=== PATIENT | female | born 1950 | race Caucasian/White ===

== ENCOUNTER 2021-05-05 06:56 | Observation (INO) ==
--- NOTE | 2021-04-09 09:43 | PAT Medication Instructions ---
Medication Instructions Date of Service April 09, 2021 Home Medications B comp [id number]-[id number] [Ivites Rx] 1 tab PO QAM Go Lo 1 tab PO AC Natural Cholesterol 1 tab PO TID albuterol 90 mcg INHALATION QID PRN amlodipine-benazepril 1 cap PO HS ascorbic acid (vitamin C) [Vitamin C] 1 g PO QAM calcium carbonate-vitamin D3 [Caltrate 600 plus D] 1 tab PO QAM cholecalciferol (vitamin D3) [Vitamin D3] 75 mcg PO QAM cinnamon bark [Cinnamon] 1,000 mg PO TID coenzyme Q10 [Co Q-10] 10 mg PO QAM cyanocobalamin (vitamin B-12) [Vitamin B-12] 1,000 mcg PO QAM ezetimibe 10 mg PO QAM glucosamine sulfate 500 mg PO QAM lactase 3,000 unit PO AC magnesium 250 mg PO BID metoprolol succinate 25 mg PO BID omega-3 acid ethyl esters 1 cap PO BID phenazopyridine [Azo] 95 mg PO QAM turmeric 1,000 mg PO BID vitamin B complex 1 cap PO QAM vitamin E 90 mg PO QAM warfarin 5 mg PO UD ASK your prescriber and surgeon warfarin 5 mg PO UD STOP taking 2 weeks before surgery (or as soon as possible if surgery is within 2 weeks) B comp [id number]-biotin-zinc [Ivites Rx] 1 tab PO QAM Go Lo 1 tab PO AC Natural Cholesterol 1 tab PO TID cinnamon bark [Cinnamon] 1,000 mg PO TID coenzyme Q10 [Co Q-10] 10 mg PO QAM glucosamine sulfate 500 mg PO QAM omega-3 acid ethyl esters 1 cap PO BID turmeric 1,000 mg PO BID vitamin E 90 mg PO QAM DO NOT take the morning of surgery ascorbic acid (vitamin C) [Vitamin C] 1 g PO QAM calcium carbonate-vitamin D3 [Caltrate 600 plus D] 1 tab PO QAM cholecalciferol (vitamin D3) [Vitamin D3] 75 mcg PO QAM cyanocobalamin (vitamin B-12) [Vitamin B-12] 1,000 mcg PO QAM lactase 3,000 unit PO AC magnesium 250 mg PO BID phenazopyridine [Azo] 95 mg PO QAM vitamin B complex 1 cap PO QAM Take morning of surgery With a small sip of water, OTHERWISE NOTHING TO EAT OR DRINK AFTER MIDNIGHT: albuterol 90 mcg INHALATION QID PRN (use if needed; please bring rescue inhaler with you to hospital day of surgery if possible) ezetimibe 10 mg PO QAM metoprolol succinate 25 mg PO BID Take evening before surgery albuterol 90 mcg INHALATION QID PRN (if needed) amlodipine-benazepril 1 cap PO HS lactase 3,000 unit PO AC magnesium 250 mg PO BID metoprolol succinate 25 mg PO BID Other Notes If you have any questions please call us at [phone] or [phone] or [phone] or [phone]
--- NOTE | 2021-04-09 12:09 | Anesthesiology Consultation ---
Date of Service April 09, 2021 Assessment & Plan (1) Encounter for pre-operative examination: - COVID screening: Per assessment on 04/09: Travel screen negative, no known COVID-19 positive contacts or current COVID-19 related symptoms. Surgeon arranging preop COVID testing. Awaiting results. - Check BSG, coags AM DOS (warfarin instructions per surgeon/prescriber) - Anesthesia concerns: Patient states she does not was spinal anesthesia stating she "just doesn't trust it." GA vs. SAB discussed with patient. Advised that this can be discussed further AM DOS before ultimate decision. Chart Review Chart Review: Acceptable Risk for Surgery (pending surgeon-ordered cardiology and PCP clearances) and Patient seen in Pre Admission Testing Teaching & Discussion Pre-Anesthesia Teaching/Discussion Notes: Instructed NPO after midnight before surgery,except medications with 15 cc of water. Medication instructions provided according to the PAT guidelines. History Surgery Operation Date: 05/05/21 09:10 Proposed Procedures p Left Ankle Postier Tibial Tendon Reconstruction with Flexor Digitorum Longus Tendon Transfer - Kirt Orellana DO s Left Foot Medializing Calcaneal Osteotomy - Kirt Orellana DO s Lateral Column Lengthening with Autograft, Percytaneous Tendo-achilles Lengthening - Kirt Orellana DO s Left Iliac Crest Autograft [place] - Kirt Orellana DO Height/Weight Height: 5 ft 3.5 in Weight: 99.2 kg Allergies Allergy/AdvReac Type Severity Reaction Status Date / Time rosuvastatin [From Crestor] Allergy Unknown Per Verified 04/09/21 13:10 [facility] records- unknown reaction atorvastatin AdvReac Mild Myalgias Unverified 04/09/21 11:43 Medications Home Medications Medication Instructions Recorded Confirmed Last Taken B comp [id number]-biotin-zinc 1 tab PO QAM 04/09/21 04/09/21 Unknown [Ivites Rx] Go Lo 1 tab PO AC 04/09/21 04/09/21 Unknown Natural Cholesterol 1 tab PO TID 04/09/21 04/09/21 Unknown albuterol 90 mcg INHALATION QID PRN 04/09/21 04/09/21 Unknown amlodipine-benazepril 1 cap PO HS 04/09/21 04/09/21 Unknown ascorbic acid (vitamin C) [Vitamin 1 g PO QAM 04/09/21 04/09/21 Unknown C] calcium carbonate-vitamin D3 1 tab PO QAM 04/09/21 04/09/21 Unknown [Caltrate 600 plus D] cholecalciferol (vitamin D3) 75 mcg PO QAM 04/09/21 04/09/21 Unknown [Vitamin D3] cinnamon bark [Cinnamon] 1,000 mg PO TID 04/09/21 04/09/21 Unknown coenzyme Q10 [Co Q-10] 10 mg PO QAM 04/09/21 04/09/21 Unknown cyanocobalamin (vitamin B-12) 1,000 mcg PO QAM 04/09/21 04/09/21 Unknown [Vitamin B-12] ezetimibe 10 mg PO QAM 04/09/21 04/09/21 Unknown glucosamine sulfate 500 mg PO QAM 04/09/21 04/09/21 Unknown lactase 3,000 unit PO AC 04/09/21 04/09/21 Unknown magnesium 250 mg PO BID 04/09/21 04/09/21 Unknown metoprolol succinate 25 mg PO BID 04/09/21 04/09/21 Unknown omega-3 acid ethyl esters 1 cap PO BID 04/09/21 04/09/21 Unknown phenazopyridine [Azo] 95 mg PO QAM 04/09/21 04/09/21 Unknown turmeric 1,000 mg PO BID 04/09/21 04/09/21 Unknown vitamin B complex 1 cap PO QAM 04/09/21 04/09/21 Unknown vitamin E 90 mg PO QAM 04/09/21 04/09/21 Unknown warfarin 5 mg PO UD 04/09/21 04/09/21 Unknown Past Medical History Medical History Asthma Atrial fibrillation Follows with Dr. Franco Diabetes mellitus, type 2 diet controlled Heart burn occasional OTC tums Hyperlipidemia Hypertension Obesity Exercise / Class Metabolic Activity II 4-5 Yardwork/Stairs/Walk up hill (one FS (no chest pain, very rare SOB)) Past Surgical History Surgical History History of carpal tunnel surgery of right wrist History of left knee replacement History of total replacement of right ankle Hx laparoscopic cholecystectomy Hx of colonoscopy Hx of tonsillectomy Past Anesthesia History No Hx of Anesthesia Complications (except PONV x1 episode) and No Family Hx of Anesthesia Complications History of PONV History of PONV Social History Smoking Status: Never smoker Do You Dip or Chew Tobacco: No Hx Alcohol Use: No Hx Substance Use: No substance use type: does not use Review of Systems Occasional palpitations. Patient denies chest pain, shortness of breath, dyspnea on exertion, fever, chills, cough, wheezing. Physical Exam Vital Signs VITALS BP 101/65 P 53 TEMP 98.2 SP02 98%RA RESP 18 PHYSICAL Full cervical extension range of motion. Full TMJ range of motion. TMD 4 finger breaths Mallampati Score 3 Dentition: upper full denture, approximately 9 remaining on lower Lungs: clear throughout to auscultation Cardiac: regular rate and rhythm, no murmurs noted Spine: normal Carotid arteries: negative bruit Extremities: no edema Lab Results Anesthesia Preop Results Results Anesthesia Widget: WBC 5.25 K/uL (4.8-10.8) 04/09/21 Hgb 14.9 g/dL (12.0-16.0) 04/09/21 Hct 44.2 % (37-47) 04/09/21 Plt 170 K/uL (130-400) 04/09/21 Na 137 mmol/L (136-145) 04/09/21 K 4.6 mmol/L (3.5-5.1) 04/09/21 Cl 107 mmol/L (98-107) 04/09/21 CO2 27 mmol/L (21-32) 04/09/21 BUN 22 mg/dl (7-18) H 04/09/21 Creat 0.84 mg/dl (0.6-1.2) 04/09/21 Glucose Level 100 mg/dl (70-99) H 04/09/21 PT 26.4 Seconds (9.0-12.0) H 04/09/21 PTT 40.9 Seconds (21.0-31.0) H 04/09/21 INR 2.8 (0.9-1.1) H 04/09/21 HA1c 6.8 % (4.5-5.6) H 04/09/21 Testing Electrocardiogram Date: 05/12/20 A. fib at 98bpm. Chest X-Ray Date: 04/09/21 No large infiltrates or consolidative lesions. Minimal prominence of pulmonary interstitium and bilateral lower lungs. Echocardiogram Date: 05/21/20 LVEF 59%. No regional motion abnormality. Grade 2 diastolic dysfunction. PASP 37 mmHg. Mild MR. Stress Test Date: 05/21/20 Type: nuclear Cardial perfusion imaging is normal. LVEF 71%. 75% MPHR. Other Testing Holter monitor (01/28/21): Predominant underlying rhythm was sinus rhythm. 9 SVT runs occurred. Atrial fibrillation occurred (20% burden), ranging from 51-191 bpm (average of 105 bpm). Atrial fibrillation was present on activation of device. Isolated SVE's were rare, SVE couplets were rare, SVE triplets were rare. Isolated VE's were rare no VE couplets or VE triplets were present. Cardiology had since increased metoprolol dosing d/t holter monitor findings.
--- NOTE | 2021-05-04 15:30 | History & Physical Report ---
Date of Service May 04, 2021 Assessment & Plan (1) Posterior tibial tendon dysfunction, left: Plan: Schedule a Left Posterior tibial tendon reconstruction w/ FDL tendon transfer, Medializing calcaneal osteotomy, Lateral column lengthening w/ autograft, percutaneous tendo-achilles lengthening, Left iliac crest autograft harvest for 05.05.21. All potential risks, benefits, complications, alternatives, and rehab have been discussed with the patient and she wishes to proceed. Restart Coumadin post op for DVT prophylaxis. (2) Contracture of left Achilles tendon: (3) Tibialis posterior tendon rupture: (4) Pes planus of left foot: History of Present Illness Chief Complaint: left ankle pain and deformity Primary Care Provider: Reynold Stringer MD This is a patient with a hx of flat foot and hindfoot pain. She was treated conservatively but has failed all conservative management. She is now being set up for surgical management. Allergies Allergy/AdvReac Type Severity Reaction Status Date / Time rosuvastatin [From Crestor] Allergy Unknown Per Verified 04/09/21 13:10 [facility]- unknown reaction atorvastatin AdvReac Mild Myalgias Unverified 04/09/21 11:43 Home Medications Medication Instructions Recorded Confirmed Type B comp 3-folic acid 1 mg-C 60 1 tab PO QAM 04/09/21 04/09/21 History mg-biotin 300 mcg-zinc ox 12.5 mg tablet Go Lo 1 tab PO AC 04/09/21 04/09/21 History Natural Cholesterol 1 tab PO TID 04/09/21 04/09/21 History albuterol 90 mcg/actuation aerosol 90 mcg INHALATION QID PRN 04/09/21 04/09/21 History inhaler amlodipine 5 mg-benazepril 20 mg 1 cap PO HS 04/09/21 04/09/21 History capsule ascorbic acid (vitamin C) 1,000 mg 1 g PO QAM 04/09/21 04/09/21 History tablet (Vitamin C) calcium carbonate 600 mg(1,500 1 tab PO QAM 04/09/21 04/09/21 History mg)-vitamin D3 800 unit chewable tablet (Caltrate 600 plus D) cholecalciferol (vitamin D3) 25 75 mcg PO QAM 04/09/21 04/09/21 History mcg (1,000 unit) capsule (Vitamin D3) cinnamon bark 500 mg capsule 1,000 mg PO TID 04/09/21 04/09/21 History (Cinnamon) coenzyme Q10 10 mg capsule (Co 10 mg PO QAM 04/09/21 04/09/21 History Q-10) cyanocobalamin (vitamin B-12) 1,000 mcg PO QAM 04/09/21 04/09/21 History 1,000 mcg tablet (Vitamin B-12) ezetimibe 10 mg tablet 10 mg PO QAM 04/09/21 04/09/21 History glucosamine sulfate 500 mg capsule 500 mg PO QAM 04/09/21 04/09/21 History lactase 3,000 unit tablet 3,000 unit PO AC 04/09/21 04/09/21 History magnesium 250 mg tablet 250 mg PO BID 04/09/21 04/09/21 History metoprolol succinate 25 mg 25 mg PO BID 04/09/21 04/09/21 History tablet,extended release 24 hr omega-3 acid ethyl esters 1 gram 1 cap PO BID 04/09/21 04/09/21 History capsule phenazopyridine 95 mg tablet 95 mg PO QAM 04/09/21 04/09/21 History turmeric 400 mg capsule 1,000 mg PO BID 04/09/21 04/09/21 History vitamin B complex 1 cap PO QAM 04/09/21 04/09/21 History vitamin E 400 unit tablet 90 mg PO QAM 04/09/21 04/09/21 History warfarin 5 mg tablet 5 mg PO UD 04/09/21 04/09/21 History Past Med/Surg History Medical History Asthma Atrial fibrillation Follows with Dr. Franco Diabetes mellitus, type 2 diet controlled Heart burn occasional OTC tums Hyperlipidemia Hypertension Obesity Surgical History History of carpal tunnel surgery of right wrist History of left knee replacement History of total replacement of right ankle Hx laparoscopic cholecystectomy Hx of colonoscopy Hx of tonsillectomy Social History Smoking Status: Never smoker Second Hand Exposure: No; Hx Alcohol Use: No Hx Substance Use: No Preferred Language: Citizen Of [place] Communication Ability: Effective Manager Epic Required: No Beliefs That Will Affect Care: None Current Living Situation: Spouse Feels Safe at Home: Yes Assistive Devices: Denture - Upper and Glasses Physical Exam Constitutional: well developed and well nourished; no acute distress ENMT: external ear and nose normal, oropharynx normal Neck: trachea midline, no thyromegaly Respiratory: normal respiratory effort, lungs clear to auscultation Cardiovascular: Rate/Rhythm: + irregularly irregular Gastrointestinal (Abdomen): normal bowel sounds, soft, nontender, no hepatosplenomegaly Musculoskeletal: Left ankle: Pes planus deformity. Swelling at the medial ankle/hindfoot. Tender PTT and the sinus tarsi. Weakness with inversion and heel rise. Skin: no rashes, warm and dry Trauma: no evidence of skin trauma Neurologic: normal touch/pain/proprioception Psychiatric: A+Ox3, euthymic affect Speech: normal rate/rhythm/volume of speech Lymphatic: no cervical or axillary lymphadenopathy
[~2021-05-05 06:56] MED LIST: BUPIVACAINE 0.25% 30 ML VIAL ONE; EPINEPHrine INJ 1 MG/ML AMP ONE; LACTATED RINGER'S 1,000 ML IV SCH
[2021-05-05 07:45] LABS: Partial Thromboplastin Ratio 1.1; Partial Thromboplastin Time 28.8 Seconds (21.0-31.0); Prothrombin Time 10.3 Seconds (9.0-12.0)
--- NOTE | 2021-05-05 07:45 | History & Physical Bridge Note ---
Date of Service May 05, 2021 History & Physical Bridge Note I have examined the patient, reviewed the History & Physical and in the interval since the performance of the History & Physical I have noted the following changes of clinical significance: no changes noted
[2021-05-05] MEDS ORDERED: ceFAZolin 2000MG 2,000 MG/15 ML SYR IV ONE (07:56)
[2021-05-05] MEDS ORDERED: ePHEDrine sulfate 50 MG/ML AMP IV PRN (08:36)
[2021-05-05] MEDS ORDERED: ONDANSETRON INJ 2 MG/ML 2 ML VIAL IV PRN ×2 (08:36→17:20)
[2021-05-05] MEDS ORDERED: fentaNYL citrate 100 MCG/2 ML VIAL IV PRN (08:36)
[2021-05-05] MEDS ORDERED: ATROPINE SULFATE 0.1 MG/ML 10ML SYR IV PRN (08:36)
[2021-05-05] MEDS ORDERED: HYDROmorphone INJ 2 MG/ML SYR/VIAL IV PRN (08:36)
[2021-05-05] MEDS ORDERED: MIDAZOLAM HCL 1 MG/ML 2ML VIAL ONE (09:57)
[2021-05-05] MEDS ORDERED: LIDOCAINE 2% 2 ML VIAL/AMP(20MG/ML) INFIL ONE (09:57)
[2021-05-05] MEDS ORDERED: PROPOFOL IV EMULSION 10 MG/ML 20 ML VIAL IV ONE (09:57)
[2021-05-05] MEDS ORDERED: ONDANSETRON INJ 2 MG/ML 2 ML VIAL ONE (09:57)
[2021-05-05] MEDS ORDERED: fentaNYL citrate 100 MCG/2 ML VIAL ONE (09:57)
[2021-05-05] MEDS ORDERED: DEXAMETHASONE SOD INJ 4 MG/ML VIAL ONE (09:57)
[2021-05-05] MEDS ORDERED: THROMBIN FOR SOLN 20000 UNIT KIT ONE ×2 (10:38→11:41)
[2021-05-05] MEDS ORDERED: BUPIVACAINE/EPINEPHRINE 0.5% MPF 1:200,000 30 ML VIAL ONE ×2 (10:38→11:41)
[2021-05-05] MEDS ORDERED: GELATIN SPONGE SZ 100 ONE ×2 (10:38→13:01)
[2021-05-05] MEDS ORDERED: BUPIVACAINE 0.5 % 5 MG/1 ML MPF 30ML VIAL ONE ×2 (11:04→11:41)
[2021-05-05] MEDS ORDERED: KETAMINE 50 MG/5 ML SYRINGE ONE (11:28)
[2021-05-05] MEDS ORDERED: HYDROmorphone INJ 2 MG/ML SYR/VIAL ONE (12:16)
[2021-05-05] MEDS ORDERED: MoRPHine SULFATE PF 1 MG/ML 10 ML AMP/VIAL ONE (13:06)
--- NOTE | 2021-05-05 13:44 | Fluoroscopy Report ---
FL ankle LT 2V CLINICAL HISTORY: Left calcaneal osteotomy. COMPARISON STUDY: None. FLUOROSCOPY TIME: 15 seconds. FLUOROSCOPIC IMAGES: 2 FINDINGS: Fluoroscopy was provided during left calcaneal osteotomy with screw fixation. Hardware is i ntact. There are skin justin. There are no unexpected radiopaque foreign bodies. IMPRESSION: Fluoroscopy provided during left calcaneal osteotomy. ACT 112: Negative or not required by law. Electronically signed by: Mele Rivera M.D. 05/05/2021 1:43 PM
--- NOTE | 2021-05-05 14:33 | Post Operative Brief Note ---
Immediate Post Op Note v1 Date of Surgery May 05, 2021 Pre & Post Diagnosis Operation Date: 05/05/21 09:15 Pre-Op Diagnosis: Left Ankle Posterior Tibial Tendon Dysfunction, posterior tibial tendon tear, Achilles tendon contracture, pes planovalgus deformity Post-Op Diagnosis: Left Ankle Posterior Tibial Tendon Dysfunction, posterior tibial tendon tear, Achilles tendon contracture, pes planovalgus deformity I identified the patient and participated in the time-out.: Yes Procedure Operation Date: 05/05/21 09:15 Actual Procedures p Left Ankle Posterior Tibial Tendon Reconstruction with Flexor Digitorum Longus Tendon Transfer(Left) - DO nathen Erickson Left Foot Medializing Calcaneal Osteotomy with screw fixation,(Left) - DO nathen Erickson Lateral Column Lengthening with application autograft, Percutaneous Tendo Achilles Lengthening, - DO nathen Erickson Left Iliac Crest Autograft [place] - Kirt Orellana DO Surgeon Kirt Orellana DO Supply Manager Vasu Whitman PA-C Estimated Blood Loss 2 Findings Consistent with Post-Op Diagnosis Anesthesia Type General Regional Complications none Disposition Accompanied Patient To Recovery: No
--- NOTE | 2021-05-05 14:55 | Operative Report (OR) ---
DATE OF PROCEDURE: 05/05/2021 PREOPERATIVE DIAGNOSES: 1. Left posterior tibial tendon tear. 2. Posterior tibial tendon dysfunction grade II. 3. Achilles contracture. 4. Painful pes planus. PROCEDURES PERFORMED: 1. Left posterior tibial tendon reconstruction with flexor digitorum longus tendon transfer. 2. Medializing and calcaneal osteotomy with screw fixation. 3. Lateral column lengthening of the calcaneus with application of autograft. 4. Percutaneous tendo-Achilles lengthening. 5. Autograft harvest from the left iliac crest bone graft. SURGEON: Kirt Orellana DO. ARTIFICIAL BREEDING RANCH SUPERVISOR: Vasu Whitman PA-C who was present for patient positioning, sterile prep and drape, management of retractors and instruments. He was present through the critical portions of the case including wound closure, application of sterile dressing and transport of the patient to recovery. ANESTHESIA: General, regional. SPECIMENS: None. DRAINS: None. COMPLICATIONS: None. BLOOD LOSS: 2 mL. PERTINENT HISTORY: This is a 70-year-old woman who sustained a posterior tibial tendon tear. She attempted and failed conservative management including observation, rest, physician-directed home exercises, physical therapy, use of a brace, use of an assistive device, anti-inflammatories, rest, ice, elevation, shoe modification. MRI demonstrates a tear of the posterior tibial tendon with posterior tibial tendon dysfunction grade II and Achilles contracture. The patient was scheduled for surgery as indicated. DESCRIPTION OF PROCEDURE: The patient was taken to the operative suite. The consent was reviewed and surgical site was identified. The patient had undergone a general and regional anesthetic and then transferred to the Operating Room table. Tourniquet was placed high in the left thigh over cast padding. Left iliac crest and left lower extremity were then sterilely prepped and draped in usual fashion. The left lower extremity was then elevated and exsanguinated with Esmarch bandage, tourniquet inflated to 350 mmHg. Next, left foot was held in dorsiflexion. 11 blade scalpel was used to perform a three part percutaneous tendo Achilles lengthening and then the small stab incisions were then closed with a skin stapler. Next, a 15 blade scalpel was used to make an incision in oblique fashion on the lateral aspect of the left calcaneus. The incision was deepened to subcutaneous tissue. Meticulous hemostasis with electrocautery. Full thickness flaps were developed. Next, periosteum was elevated with small periosteal elevator. Hohmann retractors were placed and a sagittal saw was used to perform the osteotomy in the posterior aspect of the calcaneus. Tuberosity was then shifted medially and then stabilized with a guide pin from the 7.3 mm cannulated screw set under fluoroscopic control. Next, a short thread 7.3 mm cannulated screw of appropriate length was then placed over the guide pin and then used to compress the osteotomy under fluoroscopic control. Next, the guide pin was removed. The wound was irrigated with sterile Normal Saline and the dermis was closed using buried 3-0 Vicryl sutures and the skin was closed using 4-0 Nylon. Next, a 15 blade scalpel incision was made over the anterior process of the calcaneus and lateral calcaneus, the incision deepened through subcutaneous tissue, meticulous hemostasis with electrocautery. The extensor digitorum brevis was identified, incised and then elevated both superiorly and inferiorly. Peroneal tendon sheath was elevated and Hohmann retractors were placed in the sinus tarsi and then the inferior aspect of the calcaneus. A sagittal saw was used to make an osteotomy approximately 1.5 cm proximal to the calcaneal cuboid joint. Smooth osteotomes were placed into the osteotomies to open the osteotomy site and then a cervical lamina certified athletic trainer was placed in the opening. The opening of appropriate width was then measured and the cervical lamina certified athletic trainer was then removed from the osteotomy and a moist lap was placed over the foot. Next, after injection of the left iliac crest with approximately 15 cc of 0.5% Marcaine with Epinephrine a 15 blade scalpel incision was made over the iliac crest approximately 1 cm proximal to the ASIS. This was deepened to subcutaneous tissue with electrocautery down to the level of the fascia. Fascia was incised in line with the skin incision and then the iliac crest was clearly visualized, soft tissue and fascia was elevated medially and laterally. Small Fermin retractors were placed in the inner and outer table of the iliac crest. It was irrigated with sterile Normal Saline. Appropriate length of bone wedge was measured and marked with electrocautery and then a sagittal saw was used to resect the appropriate width trapezoidal tricortical graft from the pelvis. Next, after irrigation and suction the graft was then placed on the back table and a small amount of cancellous graft was excised from the iliac crest. The wound was then finally irrigated with Sterile Normal Saline. The defect in the iliac crest was then packed with Gelfoam and Thrombin. This was then closed with the fascia overlying the iliac crest with #1 Vicryl sutures. Next, this was injected with 1 cc of Duramorph and 5 cc of 0.5% Marcaine with Epinephrine. The dermis was closed using buried interrupted 2-0 Vicryl sutures and the skin was closed using skin justin. Approximately 5 more cc of 0.5% Marcaine with Epinephrine was injected. No oozing or bleeding was encountered and a sterile compressive dry dressing was applied overwrapped with an OpSite. Next, the graft was then placed in the lateral osteotomy of the foot to lengthen the lateral column using a cervical lamina certified athletic trainer to span the osteotomy. After the graft was tamped in place with a bone tamp and mallet the cervical lamina certified athletic trainer was removed. Next, the adjacent bone graft obtained from the iliac crest was then packed around the tricortical graft and then the graft was then stabilized with a single fully threaded 4.0 mm small fragment screw placed under lag technique compressing the graft in place. Next, the 2-0 Vicryl suture was used to close the extensor digitorum brevis and the dermis was closed using buried interrupted 3-0 Vicryl. Skin was closed using 4-0 Nylon sutures. Next, a 15 blade scalpel was used to make a long curvilinear incision along the medial aspect of the hind foot overlying the posterior tibial tendon. The incision was deepened to subcutaneous tissue. Meticulous hemostasis achieved with electrocautery. The incision was extended to the first metatarsal head. Next, after incision of the lacinate ligament the flexor retinaculum was encountered. This was incised in line with skin incision overlying the posterior tibial tendon. The posterior tibial tendon was clearly visualized. Tenotomy scissors were then used to complete the release of the flexor retinaculum and the posterior tibial tendon was then elevated sharply with combination of electrocautery and 15 blade scalpel from its insertion on the navicular. The damaged portion of the tendon distally was then resected and then a whip stitch was placed with #2 ultra braid suture in the distal aspect of the posterior tibial tendon. Next, dissection was continued in the mid foot in the interval between the first metatarsal and the abductor hallucis. A Weitlaner retractor was placed in the wound and then after careful dissection the master knot of César was released and the flexor digitorum longus and flexor hallucis longus were clearly visualized distally. Tenodesis was performed with interrupted #2 ultra braid suture with toes held in neutral alignment in line with the metatarsals. Next, a whip stitch was placed in the distal aspect of the FDL tendon and then the FDL was then released distally to allow it to be retracted proximally posterior to the medial malleolus after a small cut was made in the FDL sheath posterior to the medial malleolus. After the tendon was withdrawn posteriorly, the soft tissues were elevated from the medial navicular and a 4.5 mm drill hole was made in the medial navicular. A Boyd suture passer was used to transfer the tendon from the plantar to the dorsal aspect of the navicular. It was then sutured back down to itself using a sharp tendon passer and a Pulvertaft weave technique with #2 ultra braid suture. Several passes were made and then this was then incorporated into the posterior tibial tendon. Next, free needle was used to tie the ends of the posterior tibial tendon and FDL tendon into the adjacent tendons. Sutures were then tied and cut. The wound was irrigated with sterile normal saline. The flexor sheath was closed using interrupted 2-0 Vicryl sutures. The interval between the first metatarsal and the abductors were closed using interrupted 2-0 Vicryl sutures. The dermis was closed using buried interrupted 3-0 Vicryl suture and skin closed with 4-0 Nylon. A sterile compressive Je Peterson plaster splint was applied and wrapped with an Gutierrez wrap with the foot held in slight equinus and inversion. The tourniquet was released, patient awakened and taken to recovery in stable condition. Job ID: [id number] [facility]
--- NOTE | 2021-05-05 16:08 | Anesthesiology Progress Note ---
Date of Service May 05, 2021 Anesthesia Post Procedure Vital Signs Vital Signs: Temp Pulse Pulse Resp BP Pulse Ox 05/05/21 15:50 55 L 17 106/59 L 96 05/05/21 15:40 36.4 C L 55 L 13 114/68 99 05/05/21 15:30 52 L 12 123/81 97 05/05/21 15:20 55 L 12 114/69 97 05/05/21 15:10 56 L 13 106/76 97 05/05/21 15:00 56 L 12 121/72 98 05/05/21 14:53 36.1 C L 59 L 12 123/82 98 05/05/21 08:00 36.5 C 82 18 127/66 94 Transfer of Care Handoff Completed per policy Notes Mental Status: alert / awake / arousable and participated in evaluation Patient Amnestic to Procedure: Yes Nausea / Vomiting: adequately controlled Pain: adequately controlled Airway Patency, RR, SpO2: stable & adequate BP & HR: stable & adequate Hydration State: stable & adequate Anesthetic Complications: no major complications apparent and Pt Satisfied with anesthetic care
--- NOTE | 2021-05-05 16:14 | XRay Report ---
XR ankle LT min 3V routine CLINICAL HISTORY: post op COMPARISON: Intraoperative study dated 05/05/2021 DISCUSSION: There are postsurgical changes of a calcaneal osteotomy. Two calcaneal screws are visualized. There is an overlying splint. No fractures of distal tibia or fi bula are visualized. The ankle mortise appears intact. IMPRESSION: Postsurgical changes of a calcaneal osteotomy. ACT 112: Negative or not required by law. Electronically signed by: Gil Jean M.D. 05/05/2021 4:13 PM
--- NOTE | 2021-05-05 16:16 | XRay Report ---
XR foot LT min 3V routine CLINICAL HISTORY: post op COMPARISON: Intraoperative study dated 05/05/2021 DISCUSSION: There are postsurgical changes of a calcaneal osteotomy. 2 screws are visualized. The fin e bony detail is obscured by an overlying plaster cast. No metatarsal or phalangeal fractures are vis ualized. IMPRESSION: Postsurgical changes of a calcaneal osteotomy. ACT 112: Negative or not required by law. Electronically signed by: Gil Jean M.D. 05/05/2021 4:14 PM
[2021-05-05] MEDS: PROMETHAZINE HCL 6.25 MG in SODIUM CHLORIDE 0.9% 50 ML IV ONE ×2 (16:59→18:59)
[2021-05-05] MEDS ORDERED: MAGNESIUM HYDROXIDE SUSP 30 ML UDC PO PRN (17:20)
[2021-05-05] MEDS ORDERED: GO LO PO SCH (17:20)
[2021-05-05] MEDS ORDERED: NON-FORMULARY MEDICATION (Cinnamon Bark [Cinnamon] 500 mg Capsule) PO SCH (17:20)
[2021-05-05] MEDS ORDERED: WARFARIN SOD 5 MG TAB PO SCH (17:20)
[2021-05-05] MEDS ORDERED: ALUMINUM/MAGNESIUM SUSP 30 ML UDC PO PRN (17:20)
[2021-05-05] MEDS ORDERED: [UNRECOGNIZED DRUG - OTHER] PO SCH (17:20)
[2021-05-05] MEDS ORDERED: METOCLOPRAMIDE HCL INJ 5 MG/ML 2 ML VIAL IV PRN (17:20)
[2021-05-05] MEDS ORDERED: SODIUM CHLORIDE 0.9% 1000ML 1,000 ML IV SCH (17:20)
[2021-05-05] MEDS ORDERED: HYDROmorphone INJ 0.5 MG/0.5 ML SYR IV PRN (17:20)
[2021-05-05] MEDS ORDERED: NO NSAIDS SCH (17:20)
[2021-05-05] MEDS ORDERED: NALOXONE HCL 0.4 MG/1 ML VIAL/CARP IV PRN (17:20)
[2021-05-05] MEDS ORDERED: diphenhydrAMINE Capsule 25 MG CAP PO PRN (17:20)
[2021-05-05] MEDS ORDERED: bisacodyL 10 MG SUPP PR PRN (17:20)
--- NOTE | 2021-05-05 17:54 | Hospitalist Consultation ---
Date of Consultation May 05, 2021 Assessment & Plan (1) Tibialis posterior tendon rupture: (2) Contracture of left Achilles tendon: (3) Posterior tibial tendon dysfunction, left: - Pain management, bowel regimen and DVT ppx per the primary team - PT/OT consults, pt is planning on outpatient therapy - Follow am CBC to monitor for acute blood loss -Nausea/vomiting s/p surgery - Given Zofran prior to coming up to the floor, continues to be nauseous, give Reglan prn as already ordered by primary service. (4) Hypertension: -Continue amlodipine-benazepril, metoprolol succinate 25 mg BID (5) Atrial fibrillation: -Anticoagulated on Coumadin -Follow a.m. INR -Rate controlled with metoprolol (6) Asthma: -Stable, continue albuterol inhaler as needed (7) Hyperlipidemia: -Continue ezetimibe (8) Obesity: -BMI 37.8, diet and exercise to be encouraged at bedside DVT PPx - teds, scds CODE: Full code Dispo: From home, likely to remain in the hospital x 1-2 days Thank you for involving us in the care of Ms. Maravilla. If you have any questions or concerns please do not hesitate to call. At this time medicine will follow along. Supervising Physician Co-Signing Physician Notes Patient is a 70-year-old female with history of paroxysmal atrial fibrillation on chronic anticoagulation with Coumadin, diabetes mellitus, asthma and other medical problems is consulted for postop medical management after having left ankle surgery by Dr. Orellana. Patient is doing well postoperatively. States having some foot numbness after the surgery. Reports having nausea and had 2 episodes of vomiting postoperatively. Denies any chest pain, shortness of breath, dizziness. Please review HPI. On exam patient is obese, no apparent distress, normocephalic atraumatic, EOMI, lungs are clear to auscultation, normal breath sounds, S1-S2, no murmur, abdomen soft, nontender, normal bowel sounds, alert, awake, oriented, grossly no focal deficits, left ankle surgical site in dressing. It is consulted for postop medical management. Pain control, DVT prophylaxis, activity as per primary team. Monitor INR and adjust Coumadin dosing as needed. No signs of asthma exacerbation. Continue home medications for hypertension management. Bowel regimen to prevent constipation. Incentive spirometry. Monitor for postop anemia. I personally reviewed the record. Patient is interviewed and examined at bedside. Patient's care is coordinated with Deann Alvarenga PA-C. Please refer to the documentation above for details of patient's presentation and for discussion of other issues. History of Present Illness Reason for Consultation: Medical management Requesting Physician: Dr. Orellana Attending Physician: Kirt Orellana, DO History of Present Illness This is a 70-year-old female with PMHx of A. fib, HTN, HLD, DM type II, asthma, obesity and GERD who presents for elective repair of left posterior tibial tendon tear by Dr. Orellana on 05/05/2020. The patient was seen with her at bedside, she reports that she is quite nauseous after having surgery. Her foot is still numb completely. The issues with her left lower leg started few months ago when she was picking raspberries in her garden for a prolonged timeframe, when she attempted to stand up she just could not do so. Recently she attempted few sips of water and vomited at bedside. She has been given Zofran but does not have any other antiemetics available. We will order some for her. Last bowel movement was this morning. She denies any complaints with her breathing, does not wear oxygen at baseline, no chest pain, flutter or palpitation. Allergies Allergy/AdvReac Type Severity Reaction Status Date / Time rosuvastatin [From Crestor] Allergy Unknown [facility] at[facility] AdvReac Mild Myalgias Unverified 05/05/21 07:14 Home Medications Medication Instructions Recorded Confirmed Type B comp 3-folic acid 1 mg-C 60 1 tab PO QAM 04/09/21 04/09/21 History mg-biotin 300 mcg-zinc ox 12.5 mg tablet Go Lo 1 tab PO AC 04/09/21 04/09/21 History Natural Cholesterol 1 tab PO TID 04/09/21 04/09/21 History albuterol 90 mcg/actuation aerosol 90 mcg INHALATION QID PRN 04/09/21 04/09/21 History inhaler amlodipine 5 mg-benazepril 20 mg 1 cap PO HS 04/09/21 04/09/21 History capsule ascorbic acid (vitamin C) 1,000 mg 1 g PO QAM 04/09/21 04/09/21 History tablet (Vitamin C) calcium carbonate 600 mg(1,500 1 tab PO QAM 04/09/21 04/09/21 History mg)-vitamin D3 800 unit chewable tablet (Caltrate 600 plus D) cholecalciferol (vitamin D3) 25 75 mcg PO QAM 04/09/21 04/09/21 History mcg (1,000 unit) capsule (Vitamin D3) cinnamon bark 500 mg capsule 1,000 mg PO TID 04/09/21 04/09/21 History (Cinnamon) coenzyme Q10 10 mg capsule (Co 10 mg PO QAM 04/09/21 04/09/21 History Q-10) cyanocobalamin (vitamin B-12) 1,000 mcg PO QAM 04/09/21 04/09/21 History 1,000 mcg tablet (Vitamin B-12) ezetimibe 10 mg tablet 10 mg PO QAM 04/09/21 04/09/21 History glucosamine sulfate 500 mg capsule 500 mg PO QAM 04/09/21 04/09/21 History lactase 3,000 unit tablet 3,000 unit PO AC 04/09/21 04/09/21 History magnesium 250 mg tablet 250 mg PO BID 04/09/21 04/09/21 History metoprolol succinate 25 mg 25 mg PO BID 04/09/21 04/09/21 History tablet,extended release 24 hr omega-3 acid ethyl esters 1 gram 1 cap PO BID 04/09/21 04/09/21 History capsule phenazopyridine 95 mg tablet 95 mg PO QAM 04/09/21 04/09/21 History turmeric 400 mg capsule 1,000 mg PO BID 04/09/21 04/09/21 History vitamin B complex 1 cap PO QAM 04/09/21 04/09/21 History vitamin E 400 unit tablet 90 mg PO QAM 04/09/21 04/09/21 History warfarin 5 mg tablet 5 mg PO UD 04/09/21 04/09/21 History Patient History Medical History (Updated 05/05/21 @ 17:51 by Deann Alvarenga PA-C) Asthma Atrial fibrillation Follows with Dr. Franco Diabetes mellitus, type 2 diet controlled Heart burn occasional OTC tums Hyperlipidemia Hypertension Obesity Surgical History History of carpal tunnel surgery of right wrist History of left knee replacement History of total replacement of right ankle Hx laparoscopic cholecystectomy Hx of colonoscopy Hx of tonsillectomy Social History Smoking Status: Never smoker Second Hand Exposure: No; Do You Dip or Chew Tobacco: No; Tobacco Cessation Education Requested by Patient: No Hx Alcohol Use: No Hx Substance Use: No Preferred Language: Arabic Communication Ability: Effective Director Of [employer] Work Required: No Beliefs That Will Affect Care: None Current Living Situation: Spouse Current Living Situation Comment: 1 step to get into house, 1/[address] Other Information That Helps Us Care for You: No Feels Safe at Home: Yes Safety Concerns: Feels Safe At This Time Assistive Devices: Denture - Upper Review of Systems Review of Systems: Constitutional: No fever, sweats or chills Eyes: No diplopia, no worsening or blurred vision ENT: normal hearing, no trouble swallowing Respiratory: No cough, sputum, dyspnea at rest or on exertion Cardiovascular: No chest pain, tightness or palpitations Abdomen: No pain, +nausea, +vomiting, no diarrhea or constipation Musculoskeletal: No joint pain, calf pain, swelling Neurologic: No weakness, numbness/tingling, or balance problems Psychiatric: No anxiety or depression Skin: No rash or itch Physical Exam Physical Exam: General: awake, alert but drowsy, no apparent distress, obese BMI 37.8 Head: Normocephalic, atraumatic ENT: PERRL, EOMI, no pharyngeal exudate, mucous membranes moist Chest: Clear to auscultation, on room air, no adventitious breath sounds Cardiac: Regular rate and rhythm, no murmur, no JVD, normal peripheral pulses, good capillary refill Abdominal: NABS x 4 quadrants, soft, nondistended, nontender to palpation, no rebound or guarding Extremities: Left lower extremity wrapped in dressing and Gutierrez, ice pack in place, completely numb to light touch, otherwise normal inspection, no peripheral edema or erythema, right calf nontender to palpation Psych: Normal mood and affect Neuro: AAO x 3, no gross motor deficits, speech is clear, no peripheral sensory deficits other than left foot numbness as mentioned above. Results & Data Results & Data ([facility]) Vital Signs (Past 12 Hours) Vital Signs Temp Pulse Pulse Resp BP Pulse Ox 05/05/21 17:15 56 L 12 111/59 L 98 05/05/21 17:00 65 17 139/73 100 05/05/21 16:45 56 L 16 115/66 95 05/05/21 16:30 54 L 12 115/71 96 05/05/21 16:15 62 12 106/59 L 99 05/05/21 16:05 55 L 12 101/55 L 97 05/05/21 15:50 55 L 17 106/59 L 96 05/05/21 15:40 36.4 C L 55 L 13 114/68 99 05/05/21 15:30 52 L 12 123/81 97 05/05/21 15:20 55 L 12 114/69 97 05/05/21 15:10 56 L 13 106/76 97 05/05/21 15:00 56 L 12 121/72 98 05/05/21 14:53 36.1 C L 59 L 12 123/82 98 05/05/21 08:00 36.5 C 82 18 127/66 94
[2021-05-05] MEDS ORDERED: ALBUTEROL HFA 8 GM INHALER INH PRN (18:25)
[2021-05-05] MEDS: LACTASE 3000 UNIT TAB PO SCH (19:46)
[2021-05-05] MEDS: OMEGA-3 (PURIFIED FISH OIL) 1 GM CAP PO SCH (20:42)
[2021-05-05] MEDS: MAGNESIUM OXIDE 400 MG TAB PO SCH (20:42)
[2021-05-05] MEDS: METOPROLOL SUCC 25MG EXT REL TAB PO SCH (20:43)
[2021-05-05] MEDS: ceFAZolin 2000MG 2,000 MG/15 ML SYR IV SCH (20:43)
[2021-05-05] MEDS: ACETAMINOPHEN 500 MG TAB PO SCH (20:43)
[2021-05-05] MEDS: DOCUSATE SODIUM 100 MG CAP PO SCH (20:43)
[2021-05-05] MEDS ORDERED: NON-FORMULARY MEDICATION (Turmeric 400 mg Capsule) PO SCH (21:00)
[2021-05-05] MEDS ORDERED: amLODIPine BESYLATE 5 MG TAB PO SCH (21:00)
[2021-05-05] MEDS ORDERED: ENALAPRIL MALEATE 10 MG TAB PO SCH (21:00)
[2021-05-05] MEDS ORDERED: SENNA 8.6 MG TAB PO SCH (21:00)
[2021-05-05] MEDS: oxyCODONE HCL IR 5 MG TAB (IMMEDIATE RELEASE) PO PRN (23:49)
[2021-05-06] MEDS: ceFAZolin 2000MG 2,000 MG/15 ML SYR IV SCH (02:55)
[2021-05-06] MEDS: ACETAMINOPHEN 500 MG TAB PO SCH ×2 (05:45→13:22)
[2021-05-06 07:23] LABS: Hematocrit (blood only) 38.9 % (37-47); Hemoglobin 12.6 g/dL (12.0-16.0); Mean Corpuscular Hemoglobin 28.3 pg (25-34); Mean Corpuscular Hgb Conc 32.4 g/dL (32-36); Mean Corpuscular Volume 87.4 fL (80-100); Mean Platelet Volume 10.4 fL (7.4-10.4); Platelet Count 181 K/uL (130-400); RDW Coefficient of Variation 13.9 % (11.5-14.5); RDW Standard Deviation 45.1 fL (36.4-46.3); Red Blood Count 4.45 M/uL (4.2-5.4); White Blood Count 11.65 K/uL (4.8-10.8)
[2021-05-06 07:33] LABS: Prothrombin Time 10.5 Seconds (9.0-12.0)
[2021-05-06] MEDS: METOPROLOL SUCC 25MG EXT REL TAB PO SCH (07:37)
[2021-05-06] MEDS: MAGNESIUM OXIDE 400 MG TAB PO SCH (07:38)
[2021-05-06] MEDS: OMEGA-3 (PURIFIED FISH OIL) 1 GM CAP PO SCH (07:38)
[2021-05-06] MEDS: DOCUSATE SODIUM 100 MG CAP PO SCH (07:39)
[2021-05-06 07:41] LABS: BUN Creatinine Ratio 19.7 (10-20); Calcium 8.5 mg/dl (8.5-10.1); Creatinine Clr Calc Pharmacy 59.7 ml/min; Est GFR (African American) 67.7 ml/min; Est GFR (Non-African American) 58.4 ml/min; Magnesium 2.4 mg/dl (1.8-2.4); Potassium 4.5 mmol/L (3.5-5.1)
[2021-05-06] MEDS: LACTASE 3000 UNIT TAB PO SCH ×2 (07:41→11:46)
[2021-05-06] MEDS: oxyCODONE HCL IR 5 MG TAB (IMMEDIATE RELEASE) PO PRN (08:44)
--- NOTE | 2021-05-06 08:57 | Orthopedic Progress Note ---
Date of Service May 06, 2021 Assessment & Plan (1) Posterior tibial tendon dysfunction, left: Plan: POD #1 1. Left posterior tibial tendon reconstruction with flexor digitorum longus tendon transfer. 2. Medializing and calcaneal osteotomy with screw fixation. 3. Lateral column lengthening of the calcaneus with application of autograft. 4. Percutaneous tendo-Achilles lengthening. 5. Autograft harvest from the left iliac crest bone graft. Pain controloxycodone and Tylenol. Nonweightbearing left lower extremity at all times. Ice and elevate left lower extremity when able. PT/OT DVT prophylaxisTED stockings right lower extremity, Coumadin. The patient s tates her PCP may change her to [place] over the next 2 weeks. Discharge planninghome today. (2) Contracture of left Achilles tendon: (3) Tibialis posterior tendon rupture: (4) Pes planus of left foot: Admission and Anticipated Discharge Date Admission Date: May 05, 2021 Subjective Patient states she is doing well. Pain is controlled in the left ankle. She is just starting to have some pain and is considering asking the nurse for pain medication. States she only has pain in the left pelvis when she is moving her left leg. Denies chest pain, shortness of breath, lightheadedness. Physical Exam Constitutional: well developed and well nourished; no acute distress ENMT: external ear and nose normal, oropharynx normal Neck: trachea midline, no thyromegaly Respiratory: normal respiratory effort, lungs clear to auscultation Cardiovascular: Rate/Rhythm: + irregularly irregular Gastrointestinal (Abdomen): normal bowel sounds, soft, nontender, no hepatosplenomegaly Musculoskeletal: Ankle: + surgical incision (Left ankle: Splint C/D/I.); no skin erythema and no ecchymosis Left lower extremity: Toes are mobile. Sensation intact. Cap refill less than 2 seconds. Skin: no rashes, warm and dry Trauma: no evidence of skin trauma Neurologic: normal touch/pain/proprioception Psychiatric: A+Ox3, euthymic affect Speech: normal rate/rhythm/volume of speech Lymphatic: no cervical or axillary lymphadenopathy Results & Data ([facility]) Vital Signs (Past 12 Hours) Vital Signs Temp Pulse Pulse Resp BP Pulse Ox 05/06/21 07:36 36.7 C 55 L 16 122/73 94 05/06/21 04:00 36.7 C 59 L 20 119/73 94 05/05/21 22:15 36.5 C 65 18 130/82 94 Laboratory Results Laboratory Tests 05/06/21 05/06/21 05/06/21 06:29 06:29 06:29 WBC 11.65 H Hgb 12.6 Hct 38.9 INR 1.0 Creatinine 0.98
[2021-05-06] MEDS ORDERED: ASCORBIC ACID 500 MG TAB PO SCH (09:00)
[2021-05-06] MEDS ORDERED: EZETIMIBE 10 MG TABLET PO SCH (09:00)
[2021-05-06] MEDS ORDERED: CYANOCOBALAMIN 500 MCG TABLET (VITAMIN B-12) PO SCH (09:00)
[2021-05-06] MEDS ORDERED: CHOLECALCIFEROL 1,000 UNITS 25 MCG TAB PO SCH (09:00)
[2021-05-06] MEDS ORDERED: TOCOPHERYL, DL-ALPHA 100 UNITS CAP PO SCH (09:00)
[2021-05-06] MEDS ORDERED: CALCIUM 600MG + VIT D 400 IU TAB PO SCH (09:00)
[2021-05-06] MEDS ORDERED: GLUCOSAMINE SULFATE 500 MG CAP PO SCH (09:00)
[2021-05-06] MEDS ORDERED: NON-FORMULARY MEDICATION (Coenzyme Q10 [Co Q-10] 10 mg Capsule) PO SCH (09:00)
[2021-05-06] MEDS ORDERED: [UNRECOGNIZED DRUG - REMARK] PO SCH (09:00)
[2021-05-06] MEDS ORDERED: MULTIVITAMIN TAB PO SCH (09:00)
[2021-05-06] MEDS ORDERED: VITAMIN B COMPLEX TAB PO SCH (09:00)
[2021-05-10] MEDS ORDERED: WARFARIN SOD 2.5 MG TAB PO SCH (16:00)
--- NOTE | 2021-05-13 16:14 | Discharge Summary ---
Date of Service May 13, 2021 Admission HPI Per Admitting Provider See H and P Principal Diagnosis Left posterior tibial tendon insufficiency Discharge Exam Constitutional well developed and well nourished; no acute distress ENMT external ear and nose normal, oropharynx normal Neck trachea midline, no thyromegaly Respiratory normal respiratory effort, lungs clear to auscultation Cardiovascular Rate/Rhythm: + irregularly irregular Gastrointestinal (Abdomen) normal bowel sounds, soft, nontender, no hepatosplenomegaly Musculoskeletal Ankle: + surgical incision (Left ankle: Splint C/D/I.); no skin erythema and no ecchymosis Skin no rashes, warm and dry Trauma: no evidence of skin trauma Neurologic normal touch/pain/proprioception Psychiatric A+Ox3, euthymic affect Speech: normal rate/rhythm/volume of speech Lymphatic no cervical or axillary lymphadenopathy Discharge Data Allergies Allergy/AdvReac Type Severity Reaction Status Date / Time rosuvastatin [From Crestor] Allergy Unknown Per Verified 05/05/21 07:14 [facility] records- unknown reaction atorvastatin AdvReac Mild Myalgias Unverified 05/05/21 07:14 Consultations 05/05/21 17:20 Consult Hospitalist Routine Procedures Performed Operation Date: 05/05/21 09:15 Actual Procedures p Left Ankle Posterior Tibial Tendon Reconstruction with Flexor Digitorum Longus Tendon Transfer(Left) - DO nathen Erickson Left Foot Medializing Calcaneal Osteotomy,(Left) - Kirt Orellana DO s Lateral Column Lengthening with Autograft, Percutaneous Tendo Achilles Lengthening, - DO nathen Erickson Left Iliac Crest Autograft [place] - Kirt Orellana DO Ordered Studies 05/05/21 05:00 US - OR guided needle placemen Routine 05/05/21 09:15 FL ankle LT 2V Routine Hospital Course (1) Posterior tibial tendon dysfunction, left: POD #1 1. Left posterior tibial tendon reconstruction with flexor digitorum longus tendon transfer. 2. Medializing and calcaneal osteotomy with screw fixation. 3. Lateral column lengthening of the calcaneus with application of autograft. 4. Percutaneous tendo-Achilles lengthening. 5. Autograft harvest from the left iliac crest bone graft. Pain controloxycodone and Tylenol. Nonweightbearing left lower extremity at all times. Ice and elevate left lower extremity when able. PT/OT DVT prophylaxisTED stockings right lower extremity, Coumadin. The patient states her PCP may change her to [place] over the next 2 weeks. Discharge planninghome today. (2) Contracture of left Achilles tendon: (3) Tibialis posterior tendon rupture: (4) Pes planus of left foot: Total Time Total Time Spent Total Time Spent (In Minutes): 20 Discharge Plan Discharge Items Patient Disposition: Home - Self-Care Reason For Visit: Left Ankle Posterior Tibial Tendon Dysfunction Discharge Diagnosis: Left posterior tibial tendon dysfunction Activity: Per Instructions section Non-emergency contact: Surgeon Call non-emergency contact if: your pain is not controlled, your pain is worsening and your temperature is above 101 Follow-up/Referrals: Reynold Stringer MD [Primary Care Provider] - Addtl Attending Provider Instructions: ACTIVITY RECOMMENDATIONS: Limitations: No weight bearing to affected limb at all times. SPECIAL CARE INSTRUCTIONS: * Some drainage onto the dressing is normal and is no cause for alarm. * Some swelling is natural especially after walking. * When resting, keep your foot elevated above the level of your heart. * Call [facility] if you notice: -Increased drainage -Fever over 101 degrees F -Severe constant pain BANDAGE: * Leave bandage/cast in place unless otherwise directed. * Keep bandage/cast dry at all times. FOLLOW UP VISIT WITH DR. ORELLANA If appointment is not already scheduled: Please call [facility] after you get home today to schedule a follow-up appointment for [address] Orellana at . Pending Studies at Discharge: No Stand-Alone Forms: My [facility] Dx, Smoking Cessation Medications and DC Order Prescriptions: New oxycodone-acetaminophen [Percocet] 5-325 mg tablet 1 tab PO Q4H PRN (Reason: pain) Qty: 20 RF: 0 Continued ascorbic acid (vitamin C) [Vitamin C] 1,000 mg Tablet 1 g PO QAM RF: 0 coenzyme Q10 [Co Q-10] 10 mg Capsule 10 mg PO QAM RF: 0 cyanocobalamin (vitamin B-12) [Vitamin B-12] 1,000 mcg Tablet 1,000 mcg PO QAM RF: 0 phenazopyridine 95 mg Tablet 95 mg PO QAM RF: 0 amlodipine-benazepril 5-20 mg Capsule 1 cap PO HS RF: 0 warfarin 5 mg Tablet 5 mg PO UD RF: 0 glucosamine sulfate 500 mg Capsule 500 mg PO QAM RF: 0 vitamin E 400 unit Tablet 90 mg PO QAM RF: 0 lactase 3,000 unit Tablet 3,000 unit PO AC RF: 0 magnesium 250 mg Tablet 250 mg PO BID RF: 0 metoprolol succinate 25 mg Tablet Extended Release 24 Hr 25 mg PO BID RF: 0 albuterol 90 mcg/actuation Aerosol 90 mcg INHALATION QID PRN (Reason: sob) RF: 0 vitamin B complex Capsule 1 cap PO QAM RF: 0 cholecalciferol (vitamin D3) [Vitamin D3] 25 mcg (1,000 unit) Capsule 75 mcg PO QAM RF: 0 ezetimibe 10 mg Tablet 10 mg PO QAM RF: 0 cinnamon bark [Cinnamon] 500 mg Capsule 1,000 mg PO TID RF: 0 omega-3 acid ethyl esters 1 gram Capsule 1 cap PO BID RF: 0 B comp [id number]-U-biotin-zinc 1-60-300-12.5 ga-cf-xsx-mg Tablet 1 tab PO QAM RF: 0 Caltrate 600 plus D 600 mg (1,500 mg)-800 unit Tablet,Chewable 1 tab PO QAM RF: 0 turmeric 400 mg Capsule 1,000 mg PO BID RF: 0 Natural Cholesterol 1 tab PO TID RF: 0 Go Lo 1 tab PO AC RF: 0 Discharge Orders: Discharge Order (Routine); Ordered 05/06/21 Ordered By: Vasu Smith/Other Patient Handouts: Achilles Tendon Repair Surg Admission Data Admit Date/Time: 05/05/21 11:30 Attending Provider: Kirt Orellana Admit Provider: Kirt Orlelana Primary Care Provider: Reynold Stringer Other Providers: Richard Nguyen Other Interventions: Discharge Summary Assessment (RN) Last Done: 05/06/21 09:56
== END 2021-05-06 14:30 | disposition home or self-care (01) ==
LOC: PACUINP 06:56 → ASU 06:56 → 3W 17:23
DX: M67.02 Short Achilles tendon (acquired), left ankle; I10 Essential (primary) hypertension; Z68.38 Body mass index [BMI] 38.0-38.9, adult; S93.432A Sprain of tibiofibular ligament of left ankle, initial encounter; Z20.822 Contact with and (suspected) exposure to COVID-19; M76.822 Posterior tibial tendinitis, left leg; J45.909 Unspecified asthma, uncomplicated; I48.91 Unspecified atrial fibrillation; E11.9 Type 2 diabetes mellitus without complications; E66.9 Obesity, unspecified; E78.5 Hyperlipidemia, unspecified; Z79.01 Long term (current) use of anticoagulants; Z88.8 Allergy status to other drugs, medicaments and biological substances; M21.42 Flat foot [pes planus] (acquired), left foot; X58.XXXA Exposure to other specified factors, initial encounter

== ENCOUNTER 2021-08-02 16:36 | Observation (INO) ==
[2021-08-02] MEDS ORDERED: SODIUM CHLORIDE 0.9% 1000ML 500 ML IV ONE (17:30)
--- NOTE | 2021-08-02 17:36 | Emergency Department Note ---
Impression & Plan RLQ abdominal pain, Acute appendicitis, Leukocytosis ED Provider Note NAME: KATHY YEUNG AGE: 70 SEX: F : 1950 ARRIVES VIA: Walk-In INFORMANT: [Patient] ED PROVIDER(S): [Davonte Martinez MD] CHIEF COMPLAINT: Abdominal pain HISTORY OF PRESENT ILLNESS: The patient is a 70-year-old female who presents to the ER with 2 days of right lower quadrant abdominal pain. The pain is moderate in severity, she feels somewhat better since taking some Advil prior to arrival. She has not had nausea or vomiting. She has had a low-grade fever, no chills. No urinary complaints, no diarrhea. She has not had cough or cold. The patient states that she had an outpatient CT scan as ordered by her doctors office, she was called and told that she had acute appendicitis and that she should report to the ED. She has had her gallbladder removed in the past, she has not had any issues with anesthesia. Her last meal was about 2 hours ago. Of note, the patient does take Eliquis, she held her dose last night and this morning. REVIEW OF SYSTEMS: See HPI for pertinent positives and negatives. A total of ten systems were reviewed and were otherwise negative. PMHx/PSHx: See Below SOCIAL HISTORY: See Below. PHYSICAL EXAM: GENERAL: Patient is in no acute distress. HEENT: No acute trauma, normocephalic atraumatic, mucous membranes moist, no nasal congestion, no scleral icterus. NECK: No stridor, no adenopathy, no meningismus, trachea is midline. LUNGS: Clear to auscultation bilaterally, no wheeze, no rhonchi, breath sounds equal. HEART: Without murmurs gallops or rubs, regular rate and rhythm. ABDOMEN: Soft, moderately tender in the right lower quadrant, bowel sounds positive, no hernias. EXTREMITIES: No cyanosis or edema, full range of motion of all the joints without pain or difficulty, no signs for acute trauma. NEUROLOGIC: Oriented x 3, no acute motor or sensory deficits, no focal weakness. SKIN: No rash, no jaundice, no diaphoresis. DIFFERENTIAL DIAGNOSIS: Appendicitis, ovarian cyst, ovarian torsion, UTI, obstruction, mesenteric ischemia, aortic pathology, inflammatory bowel disease, renal colic, PUD, pancreatitis, biliary pathology, hernia, volvulus, constipation, as well as other pathologies. EMERGENCY DEPARTMENT COURSE/PROCEDURES: ECG: Indication was abdominal pain. The ECG shows a normal sinus rhythm with a rate of 65. There is no ST elevation, no PVCs. There is LVH present. The QTc is 443. Continuous Cardiac Monitoring: An order was placed for continuous cardiac monitoring. The monitor shows a rate of 75 with normal sinus rhythm. MEDICAL DECISION MAKING: There is a mild leukocytosis, this would be consistent with infection. There is a normal hemoglobin and platelet count. Sodium slightly low at 134, this value is not in need of emergent correction. No kidney failure. No concerning liver enzyme elevation. No evidence for pancreatitis. Urinalysis result is pending, Covid test is pending. ECG showed a sinus rhythm, no acute ischemia. I was able to review the report from radiology. CT scan from the outpatient site did demonstrate acute appendicitis without perforation or abscess. The patient is tender in the right lower quadrant, she has a leukocytosis, certainly, her exam and laboratory findings fit with the acute appendicitis noted on CT imaging. The patient received a 500 cc saline bolus. She did not want anything for pain. I did speak with case management, I talked to the patient about the need for a surgical intervention. The on-call surgeon has been consulted. Past Med/Surg History Medical History Asthma Atrial fibrillation Follows with Dr. 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 Beliefs That Will Affect Care: None Current Living Situation: Spouse Current Living Situation Comment: 1 step to get into house, 1/[address] Feels Safe at Home: Yes Assistive Devices: Denture - Upper Allergies Allergies Allergy/AdvReac Type Severity Reaction Status Date / Time rosuvastatin [From Crestor] Allergy Unknown Per Verified 05/05/21 07:14 [facility]- unknown reaction atorvastatin AdvReac Mild Myalgias Unverified 05/05/21 07:14 Home Meds Home Medications Medication Instructions Recorded Confirmed B comp 3-folic acid 1 mg-C 60 1 tab PO QAM 04/09/21 04/09/21 mg-biotin 300 mcg-zinc ox 12.5 mg tablet Go Lo 1 tab PO AC 04/09/21 04/09/21 Natural Cholesterol 1 tab PO TID 04/09/21 04/09/21 albuterol 90 mcg/actuation aerosol 90 mcg INHALATION QID PRN 04/09/21 04/09/21 inhaler amlodipine 5 mg-benazepril 20 mg 1 cap PO HS 04/09/21 04/09/21 capsule ascorbic acid (vitamin C) 1,000 mg 1 g PO QAM 04/09/21 04/09/21 tablet (Vitamin C) calcium carbonate 600 mg(1,500 1 tab PO QAM 04/09/21 04/09/21 mg)-vitamin D3 800 unit chewable tablet (Caltrate 600 plus D) cholecalciferol (vitamin D3) 25 75 mcg PO QAM 04/09/21 04/09/21 mcg (1,000 unit) capsule (Vitamin D3) cinnamon bark 500 mg capsule 1,000 mg PO TID 04/09/21 04/09/21 (Cinnamon) coenzyme Q10 10 mg capsule (Co 10 mg PO QAM 04/09/21 04/09/21 Q-10) cyanocobalamin (vitamin B-12) 1,000 mcg PO QAM 04/09/21 04/09/21 1,000 mcg tablet (Vitamin B-12) ezetimibe 10 mg tablet 10 mg PO QAM 04/09/21 04/09/21 glucosamine sulfate 500 mg capsule 500 mg PO QAM 04/09/21 04/09/21 lactase 3,000 unit tablet 3,000 unit PO AC 04/09/21 04/09/21 magnesium 250 mg tablet 250 mg PO BID 04/09/21 04/09/21 metoprolol succinate 25 mg 25 mg PO BID 04/09/21 04/09/21 tablet,extended release 24 hr omega-3 acid ethyl esters 1 gram 1 cap PO BID 04/09/21 04/09/21 capsule phenazopyridine 95 mg tablet 95 mg PO QAM 04/09/21 04/09/21 turmeric 400 mg capsule 1,000 mg PO BID 04/09/21 04/09/21 vitamin B complex 1 cap PO QAM 04/09/21 04/09/21 vitamin E 400 unit tablet 90 mg PO QAM 04/09/21 04/09/21 warfarin 5 mg tablet 5 mg PO UD 04/09/21 04/09/21 Previous Rx's Medication Instructions Recorded oxycodone-acetaminophen 5 mg-325 1 tab PO Q4H PRN #20 tab 05/06/21 mg tablet (Percocet) Results & Data (ED) Vital Signs Vital Signs - 24 hr 08/02/21 17:04 08/02/21 17:30 Temperature 36.9 C Temperature Source Skin Pulse Rate 75 Respiratory Rate 18 Blood Pressure 130/78 Blood Pressure Mean 95 Pulse Oximetry 96 95 Oxygen Delivery Method Room Air Room Air Sepsis Recent Fever Within 48 Hours No Sepsis New/Unexplained Change in Mental Status No Sepsis Action Taken by Nursing No Action Required Home Medications Current Medication List: was personally reviewed by me Laboratory Data Attestation: I reviewed the patient's lab results. Result diagrams: 08/02/21 17:30 08/02/21 17:30 Lab Results 08/02/21 08/02/21 08/02/21 Range/Units 17:30 17:30 17:55 WBC 11.17 H (4.8-10.8) K/uL RBC 4.96 (4.2-5.4) M/uL Hgb 14.3 (12.0-16.0) g/dL Hct 42.1 (37-47) % MCV 84.9 (80-100) fL MCH 28.8 (25-34) pg MCHC 34.0 (32-36) g/dL RDW Std Deviation 40.6 (36.4-46.3) fL RDW Coeff of Santiago 13.1 (11.5-14.5) % Plt Count 174 (130-400) K/uL MPV 10.1 (7.4-10.4) fL Immature Gran % (Auto) 0.2 % Neut % (Auto) 75.7 % Lymph % (Auto) 15.7 % Andrews % (Auto) 7.8 % Eos % (Auto) 0.3 % Baso % (Auto) 0.3 % Neut # (Auto) 8.47 H (1.4-6.5) K/uL Lymph # (Auto) 1.75 (1.2-3.4) K/uL Andrews # (Auto) 0.87 H (0.11-0.59) K/uL Eos # (Auto) 0.03 (0-0.5) K/uL Baso # (Auto) 0.03 (0-0.2) K/uL Immature Gran # (Auto) 0.02 (0.00-0.02) K/uL Sodium 134 L (136-145) mmol/L Potassium 4.0 (3.5-5.1) mmol/L Chloride 103 (98-107) mmol/L Carbon Dioxide 22 (21-32) mmol/L Anion Gap 9.0 (3-11) BUN 9 (7-18) mg/dl Creatinine 0.74 (0.6-1.2) mg/dl Est Cr Clr Drug Dosing 77.2 ml/min Est GFR ( Amer) 95.1 ml/min Est GFR (Non-Af Amer) 82.1 ml/min BUN/Creatinine Ratio 12.7 (10-20) Glucose 119 H (70-99) mg/dl Calcium 9.1 (8.5-10.1) mg/dl Total Bilirubin 2.0 H (0.2-1) mg/dl AST 9 L (15-37) U/L ALT 23 (12-78) U/L Alkaline Phosphatase 74 (45-117) U/L Total Protein 6.7 (6.4-8.2) gm/dl Albumin 3.4 (3.4-5.0) gm/dl Globulin 3.3 (2.5-4.0) gm/dl Albumin/Globulin Ratio 1.0 (0.9-2) Lipase 75 (73-393) U/L COVID-19 Eval Order Covid19 at [facility] Administered Medications Discontinued Medications Sodium Chloride (Nss 1000ml) 500 mls @ 999 mls/hr IV .Q31M ONE Stop: 08/02/21 18:00 Last Admin: 08/02/21 18:25 Dose: 999 mls/hr Documented by: [id number] Imaging Data Radiologist's Impression: CT of the abdomen pelvis with IV contrast, no oral contrast: Acute appendicitis. No abscess or hernandez perforation. Discharge Plan Visit Data Chief Complaint: Abdominal Pain Stated Complaint: ABD PAIN ED Provider: Davonte Martinez Discharge Problem: RLQ abdominal pain, Acute appendicitis, Leukocytosis Patient Disposition: Still a Patient Condition: Good Forms Stand Alone Forms: My [facility] Prescriptions Prescriptions: No Action ascorbic acid (vitamin C) [Vitamin C] 1,000 mg Tablet 1 g PO QAM RF: 0 coenzyme Q10 [Co Q-10] 10 mg Capsule 10 mg PO QAM RF: 0 cyanocobalamin (vitamin B-12) [Vitamin B-12] 1,000 mcg Tablet 1,000 mcg PO QAM RF: 0 phenazopyridine 95 mg Tablet 95 mg PO QAM RF: 0 amlodipine-benazepril 5-20 mg Capsule 1 cap PO HS RF: 0 warfarin 5 mg Tablet 5 mg PO UD RF: 0 glucosamine sulfate 500 mg Capsule 500 mg PO QAM RF: 0 vitamin E 400 unit Tablet 90 mg PO QAM RF: 0 lactase 3,000 unit Tablet 3,000 unit PO AC RF: 0 magnesium 250 mg Tablet 250 mg PO BID RF: 0 metoprolol succinate 25 mg Tablet Extended Release 24 Hr 25 mg PO BID RF: 0 albuterol 90 mcg/actuation Aerosol 90 mcg INHALATION QID PRN (Reason: sob) RF: 0 vitamin B complex Capsule 1 cap PO QAM RF: 0 cholecalciferol (vitamin D3) [Vitamin D3] 25 mcg (1,000 unit) Capsule 75 mcg PO QAM RF: 0 ezetimibe 10 mg Tablet 10 mg PO QAM RF: 0 cinnamon bark [Cinnamon] 500 mg Capsule 1,000 mg PO TID RF: 0 omega-3 acid ethyl esters 1 gram Capsule 1 cap PO BID RF: 0 B comp [id number]-wakva-W-biotin-zinc 1-60-300-12.5 as-pf-zuk-mg Tablet 1 tab PO QAM RF: 0 Caltrate 600 plus D 600 mg (1,500 mg)-800 unit Tablet,Chewable 1 tab PO QAM RF: 0 turmeric 400 mg Capsule 1,000 mg PO BID RF: 0 Natural Cholesterol 1 tab PO TID RF: 0 Go Lo 1 tab PO AC RF: 0 oxycodone-acetaminophen [Percocet] 5-325 mg tablet 1 tab PO Q4H PRN (Reason: pain) Qty: 20 RF: 0 Referrals Referrals: Reynold Stringer MD [Primary Care Provider] -
[2021-08-02 17:42] LABS: Basophils # (auto) 0.03 K/uL (0-0.2); Basophils % (auto) 0.3 %; Eosinophils # (auto) 0.03 K/uL (0-0.5); Eosinophils % (auto) 0.3 %; Hematocrit (blood only) 42.1 % (37-47); Hemoglobin 14.3 g/dL (12.0-16.0); Immature Granulocytes # (auto) 0.02 K/uL (0.00-0.02); Immature Granulocytes % (auto) 0.2 %; Lymphocytes # (auto) 1.75 K/uL (1.2-3.4); Lymphocytes % (auto) 15.7 %; Mean Corpuscular Hemoglobin 28.8 pg (25-34); Mean Corpuscular Volume 84.9 fL (80-100); Mean Platelet Volume 10.1 fL (7.4-10.4); Monocytes # (auto) 0.87 K/uL (0.11-0.59); Monocytes % (auto) 7.8 %; Neutrophils # (auto) 8.47 K/uL (1.4-6.5); Neutrophils % (auto) 75.7 %; Platelet Count 174 K/uL (130-400); RDW Coefficient of Variation 13.1 % (11.5-14.5); RDW Standard Deviation 40.6 fL (36.4-46.3); Red Blood Count 4.96 M/uL (4.2-5.4); White Blood Count 11.17 K/uL (4.8-10.8)
[2021-08-02 18:05] LABS: Albumin Level 3.4 gm/dl (3.4-5.0); BUN Creatinine Ratio 12.7 (10-20); Calcium 9.1 mg/dl (8.5-10.1); Creatinine Clr Calc Pharmacy 77.2 ml/min; Est GFR (African American) 95.1 ml/min; Est GFR (Non-African American) 82.1 ml/min
[2021-08-02 18:08] LABS: Globulin 3.3 gm/dl (2.5-4.0); Total Protein 6.7 gm/dl (6.4-8.2)
[2021-08-02 18:46] LABS: Appearance Urine Clear (Clear); Bacteria Urine Automated Negative (Negative); Bilirubin Urine Negative (Negative); Blood Urine Negative (Negative); Color Urine Dark Yellow; Glucose Urine UA Negative (Negative); Ketones Urine Negative (Negative); Leukocyte Esterase Urine Negative (Negative); Nitrite Urine Negative (Negative); Protein Urine Trace (Negative); RBC Urine Automated 0-4 /hpf (0-4); Urobilinogen Urine Negative (Negative)
[2021-08-02] MEDS ORDERED: cefOXitin 2,000 MG/60 ML BAG IV STA (18:52)
[2021-08-02 18:59] LABS: Specific Gravity Urine > 1.045 (1.000-1.030)
[2021-08-02 19:05] LABS: INR 1.1 (0.9-1.1); Partial Thromboplastin Ratio 1.1; Partial Thromboplastin Time 29.1 Seconds (21.0-31.0); Prothrombin Time 10.9 Seconds (9.0-12.0)
--- NOTE | 2021-08-02 19:43 | History & Physical Report ---
Date of Service August 02, 2021 Assessment & Plan (1) Acute appendicitis: Plan: Due to the patient's imaging, clinical presentation, and labs we will proceed with laparoscopic appendectomy. Provide analgesics Provide antiemetics Continue antibiotics. Patient has received cefoxitin in emergency department We will check a chest x-ray preoperatively As noted Covid test has been performed and is noted to be negative We will keep patient n.p.o. until after her surgery Additional recommendations be forthcoming based on her operative findings and postoperative course as it unfolds. History of Present Illness Chief Complaint: Abdominal pain Primary Care Provider: Reynold Stringer MD This is a 70-year-old female who was referred for an outpatient CT scan by her primary care team secondary to approximately 24 to 36 hours of abdominal pain. Patient says that the pain is located primarily in the right lower quadrant. She has had nausea without vomiting. Patient also states she has had a low-grade fever of 99.9. She denies any shakes or chills. Patient says that the pain does not radiate and she does not note any modifying factors other than some Aleve that she took. Secondary to the results of the CT scan the patient was referred to the emergency department by her primary care team. The outpatient CT scan was independently reviewed myself. This showed findings concerning for acute appendicitis.In addition the patient had labs including a CBC her white blood cell count was 11.1. Hemoglobin, hematocrit, and platelet count are within normal range. Coagulation studies noted to be normal. Chemistry profile showed sodium is 134. Her potassium, BUN, and creatinine were within normal range. A Covid test has been performed and is negative urinalysis was performed and did show 10-30 white blood cells per high-power field. This was negative for bacteria and leukocyte esterase. An EKG showed normal sinus rhythm. There are no changes indicative of acute ischemia. I did question the patient about her activities of daily living. Patient says she does have a history of atrial fibrillation for which she takes Eliquis. She notes that she did not take her Eliquis last night or this morning. Concerning her activities of daily living she says that she does walk daily and she also does significant yard work. With these activities she does not get chest pain or shortness of breath. Concerning prior abdominal surgeries the patient has had a laparoscopic cholecystectomy. She notes that her most recent oral intake was approximately 3 to 3:30 PM earlier today. At the time my interview the patient was resting comfortably in bed she was no distress Allergies Allergy/AdvReac Type Severity Reaction Status Date / Time rosuvastatin [From Crestor] Allergy Unknown [facility] AdvReac Mild Myalgias Unverified 08/02/21 19:55 Home Medications Medication Instructions Recorded Confirmed Type Go Lo 1 tab PO AC 04/09/21 08/02/21 History Natural Cholesterol 1 tab PO TID 04/09/21 04/09/21 History amlodipine 5 mg-benazepril 20 mg 1 cap PO HS 04/09/21 08/02/21 History capsule ascorbic acid (vitamin C) 1,000 mg 1 g PO QAM 04/09/21 08/02/21 History tablet (Vitamin C) calcium carbonate 600 mg(1,500 1 tab PO QAM 04/09/21 08/02/21 History mg)-vitamin D3 800 unit chewable tablet (Caltrate 600 plus D) cholecalciferol (vitamin D3) 25 75 mcg PO QAM 04/09/21 08/02/21 History mcg (1,000 unit) capsule (Vitamin D3) cinnamon bark 500 mg capsule 1,000 mg PO TID 04/09/21 08/02/21 History (Cinnamon) coenzyme Q10 10 mg capsule (Co 10 mg PO QAM 04/09/21 08/02/21 History Q-10) cyanocobalamin (vitamin B-12) 1,000 mcg PO QAM 04/09/21 08/02/21 History 1,000 mcg tablet (Vitamin B-12) ezetimibe 10 mg tablet 10 mg PO QAM 04/09/21 08/02/21 History lactase 3,000 unit tablet 3,000 unit PO AC 04/09/21 08/02/21 History metoprolol succinate 25 mg 25 mg PO BID 04/09/21 08/02/21 History tablet,extended release 24 hr omega-3 acid ethyl esters 1 gram 2 g PO BID 04/09/21 08/02/21 History capsule albuterol sulfate 90 mcg/actuation 2 inh INHALATION Q6H PRN 08/02/21 08/02/21 History breath activated powder inhaler apixaban 5 mg tablet (Eliquis) 5 mg PO BID 10/18/21 10/18/21 History multivitamin 1 tab PO DAILY 08/02/21 08/02/21 History pumpkin seed extract-soy germ 300 1 cap PO DAILY 08/02/21 08/02/21 History mg capsule (Azo Bladder Control) Past Med/Surg History Medical History Asthma Atrial fibrillation Follows with Dr. Franco Diabetes mellitus, type 2 diet controlled Heart burn occasional OTC tums Hyperlipidemia Hypertension Obesity Surgical History History of carpal tunnel surgery of right wrist History of left knee replacement History of total replacement of right ankle Hx laparoscopic cholecystectomy Hx of colonoscopy Hx of tonsillectomy Social History Smoking Status: Never smoker Second Hand Exposure: No; Hx Alcohol Use: No Hx Substance Use: No Preferred Language: Sudanese Communication Ability: Effective Customer Security Clerk Required: No Beliefs That Will Affect Care: None Current Living Situation: Spouse Current Living Situation Comment: 1 step to get into house, 1/[address] Feels Safe at Home: Yes Assistive Devices: Denture - Upper Review of Systems Constitutional: + fever; no chills Eyes: no diplopia Ear, Nose, Mouth, Throat: no ear pain Respiratory: no cough and no dyspnea Cardiovascular: no chest pain Gastrointestinal: + abdominal pain and + nausea; no vomiting Genitourinary: no dysuria Musculoskeletal: no back pain Integumentary: no rash Neurologic: no localized weakness Physical Exam Constitutional: well developed and well nourished; no acute distress Eyes: no conjunctival abnormality ENMT: Ears: no external ear abnormality Mouth: no oropharynx abnormality Neck: trachea midline Respiratory: normal respiratory effort; no respiratory distress and no labored breathing Cardiovascular: Rate/Rhythm: regular rate and regular rhythm Gastrointestinal (Abdomen): Abdomen is soft and nondistended with positive bowel sounds. Patient had significant pain with even light palpation in the right lower quadrant over McBurney's point. Musculoskeletal: No calf tenderness Skin: no rashes Neurologic: moves all extremities Psychiatric: A+Ox3, euthymic affect Results & Data Results & Data ([facility]) Vital Signs (Past 12 Hours) Vital Signs Temp Pulse Pulse Resp BP BP Pulse Ox 08/02/21 19:23 65 17 135/68 99 08/02/21 19:00 67 16 98 08/02/21 18:30 68 16 98 08/02/21 18:00 68 16 98 08/02/21 17:58 65 16 96 08/02/21 17:30 95 08/02/21 17:04 36.9 C 75 18 130/78 96 Supervising Physician Co-Signing Physician Notes I personally saw and evaluated the patient with Jhonny Marrero PA-C and agree with the assessment and plan. 70 yo female with acute appendicitis -CT images and results reviewed, consistent with appendicitis -Will plan on laparoscopic appendectomy, possible open -Consent obtained, risks discussed including bleeding, infection, leak, abscess -She is on Eliquis but has not taken since yesterday morning, she is at increase d risk for bleeding complications although I do not think giving KCentra at this point would help much PG Care Time/CCT Total # of Minutes Spent Total Time Spent with Patient: Total time spent is greater than 50% in coordination of care (as documented) at patient's floor/unit and/or counseling patient: Coding Level of Care Code INT OBSERVATION CARE 70M LVL 3 Diagnoses Acute appendicitis K35.30 Acute appendicitis type: with localized peritonitis Appendicitis abscess presence: without abscess Appendicitis gangrene presence: without gangrene Appendicitis perforation presence: without perforation (1) Acute appendicitis Acute appendicitis type: with localized peritonitis Appendicitis abscess presence: without abscess Appendicitis gangrene presence: without gangrene Appendicitis perforation presence: without perforation Qualified Code(s): K35.30 - Acute appendicitis with localized peritonitis, without perforation or gangrene
--- NOTE | 2021-08-02 19:52 | Anesthesiology Consultation ---
Date of Service August 02, 2021 Assessment & Plan Chart Review Chart Review: Acceptable Risk for Surgery and Patient NOT seen in Pre Admission Testing Consults Requested none ASA [id number] Proposed Anesthesia Anesthesia Type: General History Surgery Operation Date: 08/02/21 21:00 Proposed Procedures p Laparoscopic Appendectomy, Possible Open(Not Applicable) - Huy Panda DO Height/Weight Height: 5 ft 3 in Weight: 94.3 kg Allergies Allergy/AdvReac Type Severity Reaction Status Date / Time rosuvastatin [From Crestor] Allergy Unknown Per Verified 05/05/21 07:14 [facility] records- unknown reaction atorvastatin AdvReac Mild Myalgias Unverified 05/05/21 07:14 Medications Home Medications Medication Instructions Recorded Confirmed Last Taken Go Lo 1 tab PO AC 04/09/21 04/09/21 Unknown Natural Cholesterol 1 tab PO TID 04/09/21 04/09/21 Unknown amlodipine 5 mg-benazepril 20 mg 1 cap PO HS 04/09/21 08/02/21 Unknown capsule ascorbic acid (vitamin C) 1,000 mg 1 g PO QAM 04/09/21 08/02/21 Unknown tablet (Vitamin C) calcium carbonate 600 mg(1,500 1 tab PO QAM 04/09/21 08/02/21 Unknown mg)-vitamin D3 800 unit chewable tablet (Caltrate 600 plus D) cholecalciferol (vitamin D3) 25 75 mcg PO QAM 04/09/21 08/02/21 Unknown mcg (1,000 unit) capsule (Vitamin D3) cinnamon bark 500 mg capsule 1,000 mg PO TID 04/09/21 08/02/21 Unknown (Cinnamon) coenzyme Q10 10 mg capsule (Co 10 mg PO QAM 04/09/21 08/02/21 Unknown Q-10) cyanocobalamin (vitamin B-12) 1,000 mcg PO QAM 04/09/21 08/02/21 Unknown 1,000 mcg tablet (Vitamin B-12) ezetimibe 10 mg tablet 10 mg PO QAM 04/09/21 08/02/21 Unknown lactase 3,000 unit tablet 3,000 unit PO AC 04/09/21 04/09/21 Unknown metoprolol succinate 25 mg 25 mg PO BID 04/09/21 08/02/21 Unknown tablet,extended release 24 hr omega-3 acid ethyl esters 1 gram 1 cap PO BID 04/09/21 04/09/21 Unknown capsule phenazopyridine 95 mg tablet 95 mg PO QAM 04/09/21 04/09/21 Unknown albuterol sulfate 90 mcg/actuation 2 inh INHALATION Q6H PRN 08/02/21 08/02/21 Unknown breath activated powder inhaler Past Medical History Medical History Asthma Atrial fibrillation Follows with Dr. Franco Diabetes mellitus, type 2 diet controlled Heart burn occasional OTC tums Hyperlipidemia Hypertension Obesity Exercise / Class Metabolic Activity II 4-5 Yardwork/Stairs/Walk up hill Past Surgical History Surgical History History of carpal tunnel surgery of right wrist History of left knee replacement History of total replacement of right ankle Hx laparoscopic cholecystectomy Hx of colonoscopy Hx of tonsillectomy Past Anesthesia History No Hx of Anesthesia Complications and No Family Hx of Anesthesia Complications History of PONV No Hx of PONV and No Hx of Motion Sickness Social History Smoking Status: Never smoker Hx Alcohol Use: No Hx Substance Use: No substance use type: does not use Physical Exam Vital Signs Last Vital Signs Temp 36.9 C 08/02/21 17:04 Pulse 65 08/02/21 19:23 Resp 17 08/02/21 19:23 BP 135/68 08/02/21 19:23 Pulse Ox 99 08/02/21 19:23 Testing Laboratory Results 08/02/21 17:30 08/02/21 17:30 PT 10.9 Seconds (9.0-12.0) 08/02/21 17:30 INR 1.1 (0.9-1.1) 08/02/21 17:30 APTT 29.1 Seconds (21.0-31.0) 08/02/21 17:30 Urine Color Dark Yellow 08/02/21 17:25 Urine Appearance Clear (Clear) 08/02/21 17:25 Urine pH 6.0 (4.5-7.5) 08/02/21 17:25 Ur Specific [place] > 1.045 (1.000-1.030) H 08/02/21 17:25 Urine Protein Trace (Negative) H 08/02/21 17:25 Urine Glucose (UA) Negative (Negative) 08/02/21 17:25 Urine Ketones Negative (Negative) 08/02/21 17:25 Urine Nitrite Negative (Negative) 08/02/21 17:25 Ur Leukocyte Esterase Negative (Negative) 08/02/21 17:25 Urine WBC (Auto) 10-30 /hpf (0-5) H 08/02/21 17:25 Urine RBC (Auto) 0-4 /hpf (0-4) 08/02/21 17:25 U Hyaline Cast (Auto) 1-5 /lpf (0-5) 08/02/21 17:25 U Epithel Cells (Auto) 10-20 /lpf (0-5) H 08/02/21 17:25 Urine Bacteria (Auto) Negative (Negative) 08/02/21 17:25 Electrocardiogram Date: 08/02/21 Findings: + NSR @ (at 65;LVH) Chest X-Ray Date: 04/09/21 Findings: + NAD and + atherosclerosis of thoracic aorta; no pulmonary vascular congestion (no sig. pulm. vasc. congestion) Echocardiogram Date: 05/21/20 EF: 59% LV Function: normal RWMA: + none Other Findings: + LVH and + diastolic dysfunction (grade 2) Valvular Disease: + no significant valvular disease, + MR (mild MR) and + pertinent finding (PA sys. pressure 37 Torr)
--- NOTE | 2021-08-02 20:02 | XRay Report ---
XR chest 1V portable CLINICAL HISTORY: pre-op abdominal pain, likely appendicitis TECHNIQUE: Single frontal radiograph of the chest was obtained. Comparison: None available at the time of this dictation. FINDINGS: No lines and tubes are seen. The cardiomediastinal silhouette is normal. The lungs are clear. No evid ence of pleural effusion or pneumothorax. IMPRESSION: No acute chest disease. ACT 112: Negative or not required by law. Electronically signed by: Ottoniel Murphy M.D. 08/02/2021 8:00 PM
[2021-08-02] MEDS ORDERED: EPINEPHrine INJ 1 MG/ML AMP ONE (21:41)
[2021-08-02] MEDS ORDERED: BUPIVACAINE 0.25% 30 ML VIAL ONE (21:41)
[2021-08-02] MEDS ORDERED: ONDANSETRON INJ 2 MG/ML 2 ML VIAL IV PRN (21:51)
[2021-08-02] MEDS ORDERED: HYDROmorphone INJ 1 MG/ML SYRINGE IV PRN (21:51)
[2021-08-02] MEDS ORDERED: PROMETHAZINE HCL 12.5 MG in SODIUM CHLORIDE 0.9% 50 ML IV PRN (21:51)
[2021-08-02] MEDS ORDERED: FLUMAZENIL 0.1 MG/1 ML 10 ML VIAL IV PRN (21:51)
[2021-08-02] MEDS ORDERED: NALOXONE HCL 0.4 MG/1 ML VIAL/CARP IV PRN (21:51)
[2021-08-02] MEDS ORDERED: fentaNYL citrate 100 MCG/2 ML VIAL IV PRN (21:51)
[2021-08-02] MEDS ORDERED: LABETALOL HCL IV 5 MG/ML 20ML IV PRN (21:51)
[2021-08-02] MEDS ORDERED: ePHEDrine sulfate 50 MG/ML AMP IV PRN (21:51)
[2021-08-02] MEDS ORDERED: ATROPINE SULFATE 0.1 MG/ML 10ML SYR IV PRN (21:51)
[2021-08-02] MEDS ORDERED: fentaNYL citrate 100 MCG/2 ML VIAL ONE ×2 (22:03→22:33)
[2021-08-02] MEDS ORDERED: CISATRACURIUM BESYLATE IV SOLN 2 MG/ML 10 ML VIAL IV ONE (22:03)
[2021-08-02] MEDS ORDERED: MIDAZOLAM HCL 1 MG/ML 2ML VIAL ONE (22:03)
[2021-08-02] MEDS ORDERED: PROPOFOL IV EMULSION 10 MG/ML 20 ML VIAL IV ONE (22:32)
[2021-08-02] MEDS ORDERED: SUCCINYLCHOLINE 100MG/5ML SYR IV ONE (22:32)
[2021-08-02] MEDS ORDERED: DEXAMETHASONE SOD INJ 4 MG/ML VIAL ONE (22:52)
[2021-08-02] MEDS ORDERED: ONDANSETRON INJ 2 MG/ML 2 ML VIAL ONE (22:53)
[2021-08-02] MEDS ORDERED: NEOSTIGMINE METHYLSULFATE 1 MG/ML 10ML VIAL ONE (22:57)
[2021-08-02] MEDS ORDERED: GLYCOPYRROLATE 0.2 MG/ML VIAL ONE (22:57)
--- NOTE | 2021-08-02 23:10 | Post Operative Brief Note ---
PG Immediate Post Op with CF Date of Surgery August 02, 2021 Pre & Post Diagnosis Operation Date: 08/02/21 21:00 Pre-Op Diagnosis: Acute appendicitis Post-Op Diagnosis: Acute suppurative appendicitis I identified the patient and participated in the time-out.: Yes Procedure Operation Date: 08/02/21 21:00 Actual Procedures p Laparoscopic Appendectomy(Not Applicable) - Huy Panda DO Surgeon Huy Panda DO Tuber Operator Jhonny Marrero PA-C Estimated Blood Loss 5 Findings See Below Acutely inflamed, dilated appendix with suppurative exudate Specimens Specimen Description: Permanent Specimen A: Appendix Drains Barboza Catheter (Placed by Shmuel Marrero PA-C prior to start of case and removed at end of case) Anesthesia Type General Complications none Disposition Disposition: Recovery Room
--- NOTE | 2021-08-02 23:14 | Operative Report ---
PG Post Operative Report Pre & Post Diagnosis Operation Date: 08/02/21 21:00 Pre-Op Diagnosis: Acute appendicitis Post-Op Diagnosis: Acute suppurative appendicitis I identified the patient and participated in the time-out.: Yes Procedure Operation Date: 08/02/21 21:00 Actual Procedures p Laparoscopic Appendectomy(Not Applicable) - Huy Panda DO Surgeon Huy Panda DO Vineyard Supervisor Jhonny Marrero PA-C Estimated Blood Loss 5 Findings See Below Acutely inflamed, dilated appendix with suppurative exudate Specimens Appendix to pathology Drains None Anesthesia Type General Complications none Disposition Disposition: Recovery Room Indications 70 yo female with acute appendicitis Description of Procedure The patient was brought to the OR and placed in the supine position and SCD's placed. At this time she underwent general endotracheal anesthesia without incident. At this time a Barboza catheter was placed under sterile conditions. Her abdomen was prepped and draped in the usual sterile fashion. She was given appropriate pre-operative antibiotics. A timeout was called, the procedure was verified as Laparoscopic appendectomy, possible open. Surgical, anesthesia and nursing teams agreed and the procedure was begun. After injection of 0.25% Marcaine with epinephrine, a supraumbilical incision was made using a #11 blade scalpel and carried down to the fascia with a hemostat. The abdomen was then elevated with towel clamps and entered using the Veress needle confirming position using the saline drop test. Pneumoperitoneum was established and 5mm trocar was placed. Laparoscope was introduced. No injury was seen from our entrance to the abdomen. At this time a 5mm suprapubic port and 12mm LLQ port were placed under direct visualization. The patient was placed in Trendelenburg and rotated to the left. At this time the appendix was visualized and the tip was freed and elevated toward the abdominal wall. The appendix appeared inflamed, dilated and edematous. There was a suppurative exudate. A window was created in the mesoappendix at the base of the appendix. A 45mm purple load stapler was then fired across the base of the appendix which appeared healthy. The mesoappendix was then taken using a 45 mm rojas load stapler. The appendix was then placed in an Endocatch bag and removed through the LLQ port site. Staple line was inspected and was intact. One clip was placed in an area of bleeding. After this, hemostasis was complete. A small amount of purulent fluid was suctioned out of the RLQ and pelvis. The 12 mm port was then closed at the fascial level using a 0 Vicryl suture using the suture passer. All ports were removed under direct visualization and no bleeding was noted. The abdomen was desufflated and the skin was closed using 4-0 Monocryl in a subcuticular fashion. Sterile dressings were applied. Barboza catheter was removed. The pat ient was then awakened from anesthesia having remained stable throughout the entire case and transported to PACU. All needle and sponge counts were correct x 2. The physician assistant branch operations manager was present and scrubbed for the entire case. He was essential in positioning, prepping and draping the patient, driving the laparoscope, retraction and exposure, closure of the incisions and placement of the dressings. I attest to the content of the Intraoperative Record and any orders documented therein. Any exceptions are noted below.
--- NOTE | 2021-08-02 23:57 | Anesthesiology Progress Note ---
Date of Service August 02, 2021 Anesthesia Post Procedure Vital Signs Vital Signs: Temp Pulse Pulse Resp BP BP Pulse Ox 08/02/21 23:40 63 20 158/74 H 97 08/02/21 23:30 66 20 145/81 H 96 08/02/21 23:25 36.3 C L 67 18 148/78 H 98 08/02/21 21:34 36.8 C 68 20 119/68 97 08/02/21 19:23 65 17 135/68 99 08/02/21 19:00 67 16 98 08/02/21 18:30 68 16 98 08/02/21 18:00 68 16 98 08/02/21 17:58 65 16 96 08/02/21 17:30 95 08/02/21 17:04 36.9 C 75 18 130/78 96 Pain Intensity Abdomen: Pain Intensity: 0 Transfer of Care Handoff Completed per policy Notes Mental Status: alert / awake / arousable Patient Amnestic to Procedure: Yes Nausea / Vomiting: adequately controlled Pain: adequately controlled Airway Patency, RR, SpO2: stable & adequate BP & HR: stable & adequate Hydration State: stable & adequate Anesthetic Complications: no major complications apparent
[2021-08-03] MEDS ORDERED: oxyCODONE HCL IR 5 MG TAB (IMMEDIATE RELEASE) PO PRN (00:22)
[2021-08-03] MEDS ORDERED: ONDANSETRON INJ 2 MG/ML 2 ML VIAL IV PRN (00:22)
[2021-08-03] MEDS ORDERED: MoRPHine SULFATE 4 MG/ML 1 ML CARP\\VIAL IV PRN (00:22)
[2021-08-03] MEDS ORDERED: ACETAMINOPHEN 1,000 MG/100 ML VIAL IV PRN (00:22)
[2021-08-03] MEDS ORDERED: ALBUTEROL HFA 8 GM INHALER INH PRN (00:30)
[2021-08-03] MEDS: LACTATED RINGER'S 1,000 ML IV SCH ×2 (00:31→15:13)
[2021-08-03] MEDS: cefOXitin 2,000 MG in DEXTROSE 5% 50 ML IV SCH ×3 (02:48→15:12)
[2021-08-03 06:38] LABS: Hematocrit (blood only) 40.6 % (37-47); Hemoglobin 13.4 g/dL (12.0-16.0); Immature Granulocytes # (auto) 0.02 K/uL (0.00-0.02); Immature Granulocytes % (auto) 0.2 %; Lymphocytes # (auto) 0.67 K/uL (1.2-3.4); Lymphocytes % (auto) 6.6 %; Mean Corpuscular Hemoglobin 28.3 pg (25-34); Mean Corpuscular Volume 85.8 fL (80-100); Mean Platelet Volume 10.3 fL (7.4-10.4); Monocytes # (auto) 0.14 K/uL (0.11-0.59); Monocytes % (auto) 1.4 %; Neutrophils # (auto) 9.34 K/uL (1.4-6.5); Neutrophils % (auto) 91.8 %; Platelet Count 158 K/uL (130-400); RDW Coefficient of Variation 13.1 % (11.5-14.5); RDW Standard Deviation 41.6 fL (36.4-46.3); Red Blood Count 4.73 M/uL (4.2-5.4); White Blood Count 10.17 K/uL (4.8-10.8)
[2021-08-03] MEDS ORDERED: METOPROLOL SUCC 25MG EXT REL TAB PO SCH (09:00)
[2021-08-03] MEDS ORDERED: MULTIVITAMIN TAB PO SCH (09:00)
[2021-08-03] MEDS ORDERED: EZETIMIBE 10 MG TABLET PO SCH (09:00)
--- NOTE | 2021-08-03 12:54 | Surgery Progress Note ---
Date of Service August 03, 2021 Assessment & Plan (1) Acute appendicitis: Plan: -Advance diet -Encourage ambulation/IS -Pain control PRN -Discharge home today with 10 day course of Augmentin Admission and Anticipated Discharge Date Admission Date: August 02, 2021 Subjective Pt seen and examined. Pain controlled. Afebrile. Tolerating diet. Physical Exam Gastrointestinal (Abdomen): Inspection/Auscultation: abdomen not distended Percussion/Palpation: abdomen soft; abdomen nontender and no hernia Results & Data ([facility]) Vital Signs (Past 12 Hours) Vital Signs Temp Pulse Resp BP Pulse Ox 08/03/21 11:20 36.6 C 62 16 106/69 90 08/03/21 07:12 36.5 C 72 16 119/73 94 08/03/21 03:38 36.7 C 70 18 121/70 92 08/03/21 02:23 36.5 C 69 18 113/70 95 08/03/21 01:15 36.6 C 65 18 110/71 95 PG Care Time/CCT Total # of Minutes Spent Total Time Spent with Patient: Total time spent is greater than 50% in coordination of care (as documented) at patient's floor/unit and/or counseling patient: Coding Level of Care Code None Diagnoses Acute appendicitis K35.30 Acute appendicitis type: with localized peritonitis Appendicitis abscess presence: without abscess Appendicitis gangrene presence: without gangrene Appendicitis perforation presence: without perforation (1) Acute appendicitis Acute appendicitis type: with localized peritonitis Appendicitis abscess presence: without abscess Appendicitis gangrene presence: without gangrene Appendicitis perforation presence: without perforation Qualified Code(s): K35.30 - Acute appendicitis with localized peritonitis, without perforation or gangrene
--- NOTE | 2021-08-03 15:26 | Discharge Summary ---
Date of Service August 03, 2021 Admission HPI Per Admitting Provider This is a 70-year-old female who was referred for an outpatient CT scan by her primary care team secondary to approximately 24 to 36 hours of abdominal pain. Patient says that the pain is located primarily in the right lower quadrant. She has had nausea without vomiting. Patient also states she has had a low-grade fever of 99.9. She denies any shakes or chills. Patient says that the pain does not radiate and she does not note any modifying factors other than some Aleve that she took. Secondary to the results of the CT scan the patient was referred to the emergency department by her primary care team. The outpatient CT scan was independently reviewed myself. This showed findings concerning for acute appendicitis.In addition the patient had labs including a CBC her white blood cell count was 11.1. Hemoglobin, hematocrit, and platelet count are within normal range. Coagulation studies noted to be normal. Chemistry profile showed sodium is 134. Her potassium, BUN, and creatinine were within normal range. A Covid test has been performed and is negative urinalysis was performed and did show 10-30 white blood cells per high-power field. This was negative for bacteria and leukocyte esterase. An EKG showed normal sinus rhythm. There are no changes indicative of acute ischemia. I did question the patient about her activities of daily living. Patient says she does have a history of atrial fibrillation for which she takes Eliquis. She notes that she did not take her Eliquis last night or this morning. Concerning her activities of daily living she says that she does walk daily and she also does significant yard work. With these activities she does not get chest pain or shortness of breath. Concerning prior abdominal surgeries the patient has had a laparoscopic cholecystectomy. She notes that her most recent oral intake was approximately 3 to 3:30 PM earlier today. At the time my interview the patient was resting comfortably in bed she was no distress Principal Diagnosis Acute appendicitis Discharge Exam Constitutional WD/WN, vitals as above Gastrointestinal (Abdomen) Inspection/Auscultation: + abdominal surgical incision (dressings intact); abdomen not distended Percussion/Palpation: abdomen soft Discharge Data Allergies Allergy/AdvReac Type Severity Reaction Status Date / Time rosuvastatin [From Crestor] Allergy Unknown Per Verified 08/02/21 19:[facility] at[facility]atin AdvReac Mild Myalgias Unverified 08/02/21 19:55 Consultations 08/02/21 19:00 Consult General Surgery Stat Procedures Performed Operation Date: 08/02/21 21:00 Actual Procedures p Laparoscopic Appendectomy(Not Applicable) - Huy Panda DO Hospital Course (1) Acute appendicitis: 70 y/o female was referred to the ED after outpatient CT showed acute appendicitis. Her white count was 11,000. She was taken to the operating room for laparoscopic appendectomy and transferred to the surgical floor for overnight observation. In the morning she was able to advance diet and tolerate oral analgesics. She was stable for discharge home. Total Time Total Time Spent Total Time Spent (In Minutes): 15 Discharge Plan Discharge Items Patient Disposition: Home - Self-Care Reason For Visit: APPY Discharge Diagnosis: Appendectomy Condition on Discharge: Good Activity: As commented below Lifting: No more than 10 pounds Bathing Comment: can shower over bandages, remove bandages in 1-2 days Driving/Machine Use: can drive when pain free Non-emergency contact: Surgeon Call non-emergency contact if: you have any medication questions, your pain is not controlled, you have a fever, your temperature is above 101.5 and your wound has increased redness Follow-up/Referrals: Huy Panda DO [Family Provider] - 08/17/21 10:00 am (Please call to make an appt in approx 2 weeks) Reynold Stringer MD [Primary Care Provider] - Diet: Regular Addtl Attending Provider Instructions: Restart Eliquis on You can take Tylenol or ibuprofen as needed for pain Pending Studies at Discharge: No Stand-Alone Forms: My [employer], Smoking Cessation Medications and DC Order Prescriptions: New amoxicillin-pot clavulanate [Augmentin] 875-125 mg tablet 1 tab PO BID Qty: 20 RF: 0 Continued ascorbic acid (vitamin C) [Vitamin C] 1,000 mg Tablet 1 g PO QAM RF: 0 coenzyme Q10 [Co Q-10] 10 mg Capsule 10 mg PO QAM RF: 0 cyanocobalamin (vitamin B-12) [Vitamin B-12] 1,000 mcg Tablet 1,000 mcg PO QAM RF: 0 amlodipine-benazepril 5-20 mg Capsule 1 cap PO HS RF: 0 lactase 3,000 unit Tablet 3,000 unit PO AC PRN (Reason: Gi Upset) RF: 0 metoprolol succinate 25 mg Tablet Extended Release 24 Hr 25 mg PO BID RF: 0 cholecalciferol (vitamin D3) [Vitamin D3] 25 mcg (1,000 unit) Capsule 75 mcg PO QAM RF: 0 ezetimibe 10 mg Tablet 10 mg PO QAM RF: 0 cinnamon bark [Cinnamon] 500 mg Capsule 1,000 mg PO TID RF: 0 omega-3 acid ethyl esters 1 gram Capsule 2 g PO BID RF: 0 Caltrate 600 plus D 600 mg (1,500 mg)-800 unit Tablet,Chewable 1 tab PO QAM RF: 0 Natural Cholesterol 1 tab PO TID RF: 0 Go Lo 1 tab PO AC RF: 0 albuterol sulfate 90 mcg/actuation Aerosol Powdr Breath Activated 2 inh INHALATION Q6H PRN (Reason: Shortness Of Breath Or Wheezing) RF: 0 Azo Bladder Control 300 mg Capsule 1 cap PO DAILY RF: 0 multivitamin Tablet 1 tab PO DAILY RF: 0 Discontinued Eliquis 5 mg tablet 5 mg PO BID RF: 0 Discharge Orders: Discharge Order (Routine); Ordered 08/03/21 Ordered By: Ignacio Smith/Other Patient Handouts: Understanding Deep Vein Thrombosis, DVT Post Op Prevention Admission Data Admit Date/Time: 08/02/21 23:17 Attending Provider: Huy Panda Admit Provider: Huy Panda Primary Care Provider: Reynold Stringer Other Providers: Jhonny Marrero Other Interventions: Discharge Summary Assessment (RN) Last Done: 08/03/21 13:43 Coding Level of Care Code D/C DAY MANAGEMENT <30 MINS Diagnoses Acute appendicitis K35.30 Acute appendicitis type: with localized peritonitis Appendicitis abscess presence: without abscess Appendicitis gangrene presence: without gangrene Appendicitis perforation presence: without perforation
[2021-08-03] MEDS ORDERED: ENALAPRIL MALEATE 10 MG TAB PO SCH (21:00)
[2021-08-03] MEDS ORDERED: amLODIPine BESYLATE 5 MG TAB PO SCH (21:00)
--- NOTE | 2021-08-04 11:28 | Electrocardiogram Report ---
Test Reason : Blood Pressure : / mmHG Vent. Rate : 065 BPM Atrial Rate : 065 BPM P-R Int : 180 ms QRS Dur : 102 ms QT Int : 426 ms P-R-T Axes : 065 -28 018 degrees QTc Int : 443 ms Normal sinus rhythm Minimal voltage criteria for LVH, may be normal variant Borderline ECG When compared with ECG of 08-JUL-2015 12:31, Nonspecific T wave abnormality now evident in Anterior leads Confirmed by Best Holt ([id number]) on 08/04/2021 11:28:30 AM Referred By: REFERRED SELF Confirmed By:Best Holt
== END 2021-08-03 15:36 | disposition home or self-care (01) ==
LOC: ED 16:36 → 3N 21:34 → OR 21:34